=== PATIENT | male | born 1930 | race Caucasian/White ===

== ENCOUNTER 2021-06-22 07:14 | Inpatient (IN) | payer MEDICARE, OTHER ==
[~2021-06-22] VITALS: Ht 170.2 cm; Wt 83.0 kg
--- NOTE | 2021-06-22 07:14 | NUR ---
PT BIBRA 839 FROM HOME C/O SOB, FEVER AND LOW O2 SAT. PT IS AAOX3, NOTED RESPIRATORY DISTRESS, HOOKED TO O2 VIA NON RB AT 15LPM, HOOKED TO FIBERGLASS CONTAINER WINDING OPERATOR, KEPT RESTED AND COMFORTABLE. WILL CONTINUE TO MONITOR.
--- NOTE | 2021-06-22 07:21 | NUR ---
PT SEEN AND EXAMINED BY .
[2021-06-22] MEDS ORDERED: DEXAMETHASONE SOD PHOSPHATE 10 MG/ML VIAL ONE (07:23)
[2021-06-22] MEDS ORDERED: DEXAMETHASONE SOD PHOSPHATE 10 MG/ML VIAL IV ONE (07:30)
--- NOTE | 2021-06-22 07:30 | NUR ---
IV LINE ESTABLISHED BLOOD DRAWN AND SENT TO LAB.
[2021-06-22 07:57] LABS: BASOPHILS # (AUTO) 0.2 K/uL (0.0-0.2); BASOPHILS % (AUTO) 2.3 % (0.0-2.0); HEMATOCRIT 42 % (39-51); HEMOGLOBIN 14.4 g/dL (13.5-17.5); LYMPHOCYTES # (AUTO) 0.7 K/uL (0.8-4.8); LYMPHOCYTES % (AUTO) 8.2 % (20.0-44.0); MEAN CORPUSCULAR HGB CONC 34 g/dl (31.0-36.0); MEAN CORPUSCULAR VOLUME 91 fL (80-96); MONOCYTES # (AUTO) 0.4 K/uL (0.1-1.30); MONOCYTES % (AUTO) 4.8 % (2.0-12.0); NEUTROPHILS # (AUTO) 6.8 K/uL (1.8-8.9); NEUTROPHILS % (AUTO) 84.7 % (43.0-81.0); PLATELET COUNT (AUTO) 220 K/uL (150-450)
[2021-06-22 08:18] LABS: ALANINE AMINOTRANSFERASE 58 U/L (12-78); ALBUMIN 3.2 g/dL (3.4-5.0); ALKALINE PHOSPHATASE 81 U/L (46-116); BILIRUBIN,DIRECT 0.2 mg/dL (0.0-0.2); BILIRUBIN,TOTAL 0.7 mg/dL (0.2-1.0); CALCIUM, SERUM 8.4 mg/dL (8.5-10.1); CARBON DIOXIDE 28 mmol/L (21-32); CHLORIDE 101 mmol/L (98-107); CREATININE 1.1 mg/dL (0.6-1.3); GLUCOSE 101 mg/dL (74-106); POTASSIUM 3.8 mmol/L (3.5-5.1); SODIUM SERUM 139 mmol/L (136-145); UREA NITROGEN, BLOOD 21 mg/dL (7-18)
--- NOTE | 2021-06-22 09:28 | NUR ---
COVID SPECIMEN OBTAINED AND SENT TO LAB.
--- NOTE | 2021-06-22 09:35 | NUR ---
NURSING SUP CALLED FOR TELEMETRY BED.
[2021-06-22] MEDS ORDERED: ERGO500093 PO (10:05)
[2021-06-22] MEDS ORDERED: VALS1TAB6 PO (10:05)
[2021-06-22] MEDS ORDERED: DICL100G34 TP (10:05)
[2021-06-22] MEDS ORDERED: TADA5TAB2 PO (10:05)
[2021-06-22] MEDS ORDERED: POTA20TA83 PO (10:05)
[2021-06-22] MEDS ORDERED: ASPI-1169 PO (10:05)
[2021-06-22] MEDS ORDERED: OXYB-58 PO (10:05)
[2021-06-22] MEDS ORDERED: ASCO-352 PO (10:05)
[2021-06-22] MEDS ORDERED: MECL-159 PO (10:05)
[2021-06-22] MEDS ORDERED: MONT10TA22 PO (10:05)
[2021-06-22] MEDS ORDERED: ICOS1CAP PO (10:05)
[2021-06-22] MEDS ORDERED: DUTA0.5C PO (10:05)
[2021-06-22] MEDS ORDERED: TAMS-12 PO (10:05)
[2021-06-22] MEDS ORDERED: METO25TA3 PO (10:05)
[2021-06-22] MEDS ORDERED: PRAM0.5T11 PO (10:05)
[2021-06-22] MEDS ORDERED: MEMA10TA PO (10:05)
[2021-06-22] MEDS ORDERED: LEVO50TA8 PO (10:05)
[2021-06-22] MEDS ORDERED: EZET10TA16 PO (10:05)
[2021-06-22] MEDS ORDERED: DONE10TA44 PO (10:05)
[2021-06-22] MEDS ORDERED: FURO-144 PO (10:05)
[2021-06-22] MEDS ORDERED: FLUT1BLS6 IH (10:05)
--- NOTE | 2021-06-22 10:10 | NUR ---
RT AT BEDSIDE FOR HIGH FLOW NASAL CAN.
[2021-06-22] MEDS ORDERED: TOCILIZUMAB 400 MG in IV NS 0.9% 80 ML IV ONE (10:30)
[2021-06-22] MEDS ORDERED: ERGOCALCIFEROL (VITAMIN D 2) 50,000 UNIT CAPSULE PO SCH (10:30)
[2021-06-22] MEDS ORDERED: DICLOFENAC TOPICAL 100 GM GEL..GM. TP PRN (10:30)
[2021-06-22 11:02] LABS: BILIRUBIN,URINE NEGATIVE (NEGATIVE); COLOR,URINE YELLOW (YELLOW); LEUKOCYTE ESTERASE ,URINE NEGATIVE (NEGATIVE); NITRITE, URINE NEGATIVE (NEGATIVE); PROTEIN,URINE 30 mg/dl (NEGATIVE); UGLUCOSE NEGATIVE (NEGATIVE); UROBILINOGEN,URINE 0.2 EU/dL (0.2)
[2021-06-22 11:11] LABS: BACTERIA,URINE Few /HPF (None Seen); MUCUS,URINE Few /LPF (None Seen); SQUAMOUS EPITHELIAL CELL,UR Rare /HPF (None Seen)
[2021-06-22] MEDS ORDERED: ONDANSETRON HCL/PF 4 MG/2 ML VIAL IVP PRN (11:11)
[2021-06-22 11:19] LABS: ASPARTATE AMINOTRANSFERASE 100 U/L (15-37)
[2021-06-22] MEDS: CHOLECALCIFEROL 1,000 UNIT TABLET (VIT D3) PO SCH (13:00)
[2021-06-22] MEDS ORDERED: ENOXAPARIN SODIUM 40 MG/0.4 ML DISP.SYRIN SQ ONE (13:01)
[2021-06-22] MEDS ORDERED: CHOLECALCIFEROL 1,000 UNIT TABLET (VIT D3) ONE (13:01)
[2021-06-22] MEDS: ENOXAPARIN SODIUM 40 MG/0.4 ML DISP.SYRIN SQ SCH ×2 (13:02→21:08)
[2021-06-22] MEDS ORDERED: REMDESIVIR (CHARGED) 200 MG, *LOADING DOSE 1 EA in IV NS 0.9% 210 ML IV ONE (14:00)
--- NOTE | 2021-06-22 14:04 | NUR ---
NURSING SUP GAVE 112-1.
--- NOTE | 2021-06-22 14:10 | NUR ---
RN NOT AVAILABLE WILL CALL BACK IN 10 MINS.
--- NOTE | 2021-06-22 14:23 | NUR ---
REPORT GIVEN TO SUZIE GUARDADO FOR MAXIMILIANO.
[2021-06-22 15:00] VITALS: BP 150/90
--- NOTE | 2021-06-22 15:00 | NUR ---
LOOSE HAND PACKER NOTES RECEIVED PT FROM ER VIA ANA, ANTHONY COVID PNEUMONIA WITH SEPSIS BY DR. DUNN, AAO X 3, UZBEK/KYRGYZ SPEAKING, ON HFNC 40L 100% SPO2 AT 98%. NOT IN ANY DISTRESS, SINUS RHYTHM HR 67, DENIES PAIN OR DISCOMFORT AT THIS TIME. IV ACCESS TO LEFT AC G18, FLUSHES WELL SITE CLEAR. INTACT SKIN. REGULAR DIET. UNIT ORIENTATION DONE AND USE OF CALL LIGHT, SAFETY MEASURES IN PLACE, BED LOW LOCKED, CALL LIGHT WITHIN REACH. WILL CONT TO MONITOR.
[2021-06-22 16:00] VITALS: BP 166/90
[2021-06-22] MEDS: ASCORBIC ACID 500 MG TABLET PO SCH (17:14)
--- NOTE | 2021-06-22 18:29 | NUR ---
RN NOTES ALL NEEDS MET AT THIS TIME. PATIENT RESTING COMFORTABLY. HOB UP 30 DEG. SAFETY MEASURES IN PLACE. CALL LIGHT WITHIN REACH. WILL ENDORSE TO NEXT SHIFT FOR MAXIMILIANO. LOADING REYEZ OF REMDESIVIR GIVEN AT ER EARLIER. NOT IN ANY DISTRESS.
--- NOTE | 2021-06-22 19:20 | NUR ---
RN NOTES RECEIVED PATIENT AWAKE ON BED. WITH HIFLOW O2 40LPM AND FIO2 100% NO ACUTE RESPIRATORY DISTRESS SATURATION 95%. AFEBRILE. PATIENT IS AWARE HOW TO USED CALL LIGHT. ISOLATION PRECAUTION RENDERED DUE TO + COVID. DENIES PAIN. KEPT PATIENT CLEAN AND COMFORTABLE IN BED. ALL NEEDS ATTENDED. WILL CONTINUE TO MONITOR.
[2021-06-22 20:00] VITALS: BP 157/90
[2021-06-22] MEDS: OXYBUTYNIN CHLORIDE ER 5 MG TAB PO SCH (21:08)
[2021-06-23] VITALS: BP 159/78
--- NOTE | 2021-06-23 | NUR ---
RN NOTES ENDORSED CONTINUITY OF CARE TO MAX, PATIENT IS IN STABLE CONDITION AT THIS TIME. CONTINUE ON HIFLOW 02 40 LPM AND FIO2 100%. SATURATION KEPT >92%. AFEBRILE. ALL NEEDS ATTENDED.CALL LIGHT KEPT WITHIN EASY REACH.
--- NOTE | 2021-06-23 00:05 | NUR ---
RN NOTE REPORT RECEIVED FROM CARSON LARSEN, PATIENT AWAKE IN BED, AO X 3, NO S/SX OF ACUTE DISTRESS AT THIS TIME. BREATHING EVEN AND UNLABORED, SATURATION AT 94% ON 40 LPM 100% FIO2 VIA HIGH FLOW NC, SR ON THE MONITOR, HR IS 97. NOTED IV SITE AT L AC 18G, PATENT AND FLUSHING WELL, NO S/S OF INFECTION OR INFILTRATION. SAFETY MEASURES IMPLEMENTED. PATIENT BED ALARM IS ON. HEAD OF BED ELEVATED. BED IS LOCKED, IN LOWEST POSITION AND SIDE RAILS UP. CALL LIGHT WITHIN REACH OF THE PATIENT. WILL CONTINUE TO MONITOR AND REASSESS FOR ANY CHANGES..
[2021-06-23 04:00] VITALS: BP 150/84
--- NOTE | 2021-06-23 05:45 | NUR ---
RN NOTE SPUTUM SPECIMEN COLLECTED, SCOTT OF LAB WAS NOTIFIED, SHE ACKNOWLEDGED.
[2021-06-23 06:45] LABS: BASOPHILS % (AUTO) 0.1 % (0.0-2.0); HEMATOCRIT 39 % (39-51); HEMOGLOBIN 13.4 g/dL (13.5-17.5); LYMPHOCYTES # (AUTO) 0.5 K/uL (0.8-4.8); LYMPHOCYTES % (AUTO) 6.9 % (20.0-44.0); MEAN CORPUSCULAR HGB CONC 34 g/dl (31.0-36.0); MEAN CORPUSCULAR VOLUME 92 fL (80-96); MONOCYTES # (AUTO) 0.7 K/uL (0.1-1.30); MONOCYTES % (AUTO) 8.8 % (2.0-12.0); NEUTROPHILS # (AUTO) 6.7 K/uL (1.8-8.9); NEUTROPHILS % (AUTO) 84.2 % (43.0-81.0); PLATELET COUNT (AUTO) 239 K/uL (150-450); RED BLOOD CELL COUNT(AUTO) 4.26 MIL/uL (4.5-6.0); WHITE BLOOD COUNT (AUTO) 7.9 K/uL (4.3-11.0)
--- NOTE | 2021-06-23 06:51 | NUR ---
RN NOTE PER SCOTT OF LAB, SHE IS UNABLE TO DRAW SPECIMEN FOR QUANTIFERON GOLD TB TEST KIT IS UNAVAILABLE. WILL ADVISE ONCE KIT IS AVAILABLE.
[2021-06-23 07:03] LABS: ALBUMIN 2.8 g/dL (3.4-5.0); BILIRUBIN,TOTAL 0.6 mg/dL (0.2-1.0); CALCIUM, SERUM 8.3 mg/dL (8.5-10.1); CREATININE 0.9 mg/dL (0.6-1.3); POTASSIUM 3.6 mmol/L (3.5-5.1); TOTAL PROTEIN, SERUM 7.1 g/dL (6.4-8.2)
[2021-06-23 07:21] LABS: FERRITIN 848 ng/mL (8-388)
--- NOTE | 2021-06-23 07:51 | NUR ---
SENIOR PRINCIPAL ARCHITECT NOTES RECEIVED THE PATIENT AWAKE AND ALERT IN BED ON HIGH FLOW 40 LPM FIO2 100%, O2 SAT 94%, SR 63BPM. PT ABLE TO USE URINAL, SKIN IS DRY CLEAN AND IN TACT. PT HAS A LEFT AC 18G FLUSHING WELL WITH DRESSING DRY AND IN TACT. BED IS IN LOWEST LOCKED POSITION, CALL LIGHT WITHIN REACH, ALL NEEDS ATTENDED TO. WILL CONTINUE TO MONITOR.
[2021-06-23 08:00] VITALS: BP 137/81
[2021-06-23] MEDS: LEVOTHYROXINE SODIUM 50 MCG TABLET PO SCH (08:01)
[2021-06-23] MEDS: ASPIRIN 81 MG TAB.CHEW PO SCH (08:18)
[2021-06-23] MEDS: CHOLECALCIFEROL 1,000 UNIT TABLET (VIT D3) PO SCH (08:18)
[2021-06-23] MEDS: HYDROCHLOROTHIAZIDE 25 MG TABLET PO SCH (08:19)
[2021-06-23] MEDS: FUROSEMIDE 40 MG TABLET PO SCH (08:19)
[2021-06-23] MEDS: TAMSULOSIN 0.4 MG CAP.SR.24H PO SCH (08:19)
[2021-06-23] MEDS: METOPROLOL SUCCINATE 25 MG TAB.SR.24H PO SCH (08:20)
[2021-06-23] MEDS: ZINC SULFATE 220 MG CAPSULE PO SCH (08:20)
[2021-06-23] MEDS: MECLIZINE HCL 25 MG TABLET PO SCH (08:20)
[2021-06-23] MEDS: DONEPEZIL 5 MG TABLET PO SCH (08:20)
[2021-06-23] MEDS: ASCORBIC ACID 500 MG TABLET PO SCH ×2 (08:20→16:16)
[2021-06-23] MEDS: DUTASTERIDE (0.5 MG) 0.5 MG CAPSULE PO SCH (08:21)
[2021-06-23] MEDS: VALSARTAN 80 MG TABLET PO SCH (08:21)
[2021-06-23] MEDS: DEXAMETHASONE SOD PHOSPHATE 10 MG/ML VIAL IV SCH (08:21)
[2021-06-23] MEDS: ENOXAPARIN SODIUM 40 MG/0.4 ML DISP.SYRIN SQ SCH ×2 (08:22→16:16)
[2021-06-23] MEDS ORDERED: Medication Not On Formulary EA (Tadalafil (Cialis) 5 MG) PO SCH (09:00)
[2021-06-23] MEDS ORDERED: DEXAMETHASONE SOD PHOSPHATE 4 MG/ML VIAL IV SCH (09:00)
[2021-06-23] MEDS ORDERED: ENOXAPARIN SODIUM 40 MG/0.4 ML DISP.SYRIN SQ SCH (09:00)
[2021-06-23] MEDS: EZETIMIBE 10 MG TABLET PO SCH (09:38)
--- NOTE | 2021-06-23 10:39 | NUR ---
SCREENER OPERATOR NOTE SEEN BY DR VILLALOBOS UPDATED PATIENT CONDITION , IF PATIENT SATURATION BELOW 87% OK TO PLACE NONREBREATHER MASK ,WILL F\U
[2021-06-23 12:00] VITALS: BP 136/70
--- NOTE | 2021-06-23 13:00 | NUR ---
EMERY WHEEL WORKER NOTE ENCOURAGED TO USE INTENSIVE SPIROMETER AND PLACE ON PRONE POSITION ,WILL CONT TO MONITOR
[2021-06-23] MEDS: REMDESIVIR (CHARGED) 100 MG in IV NS 0.9% 100 ML IV SCH (13:41)
--- NOTE | 2021-06-23 15:33 | NUR ---
RADIAL ROUTER OPERATOR NOTE PLACED ON SIDE O2 SATURATION 93%, WILL MONITOR
[2021-06-23 16:00] VITALS: BP 132/72
--- NOTE | 2021-06-23 18:36 | NUR ---
CABINET AND TRIM INSTALLER NOTES PT IN BED IN SEMI-SPAIN POSITION, COUGHING AND HAVING SOME DIFFICULTY BREATHING. OXYGEN SATURATION FLUCTUATING FROM 88-91%. INSTRUCTED PT ON USE OF INCENTIVE SPIROMETER, PT USING EFFECTIVELY. ABLE TO EAT FOOD, ABOUT 50% CONSUMED. WILL CONTINUE TO MONITOR.
--- NOTE | 2021-06-23 19:20 | NUR ---
RN NOTE REPORT RECEIVED FROM ELSA LARSEN, PATIENT IN BED ON SEMI SPAIN'S, AO X 3, GAMBIAN SPEAKING, BUT UNDERSTAND SIMPLE TAJIK. NO S/SX OF ACUTE DISTRESS AT THIS TIME. BREATHING EVEN AND UNLABORED, SATURATION AT 91% ON 40 LPM 100% FIO2 VIA HIGH FLOW NC, SR ON THE MONITOR, HR IS 68. NOTED IV SITE AT L AC 18G, PATENT AND FLUSHING WELL, NO S/S OF INFECTION OR INFILTRATION. ENCOURAGED USE OF INCENTIVE SPIROMETER AND EDUCATED REGARDING IMPORTANCE OF PRONING AND SIDE LYING, VERBALIZED UNDERSTANDING. SAFETY MEASURES IMPLEMENTED. PATIENT BED ALARM IS ON. HEAD OF BED ELEVATED. BED IS LOCKED, IN LOWEST POSITION AND SIDE RAILS UP. CALL LIGHT WITHIN REACH OF THE PATIENT. WILL CONTINUE TO MONITOR AND REASSESS FOR ANY CHANGES..
[2021-06-23 20:00] VITALS: BP 109/71
--- NOTE | 2021-06-23 20:52 | NUR ---
RN NOTE TELEPHONE CALL FROM JULIO OF LAB, PCR RESULTED POSITIVE. DR MA WAS NOTIFIED. AWAITING CALL BACK.
--- NOTE | 2021-06-23 21:00 | NUR ---
RN NOTE SPOKE WITH DR MA, RELAYED POSITIVE PCR RESULT, HE ACKNOWLEDGED. ALSO ADVISED PT HAS BEEN COUGHING A LOT AND REQUESTING FOR COUGH MEDICATION. ORDER RECEIVED FOR REGULAR ROBITUSSIN (WITHOUT CODEINE) 5 ML PO Q4H PRN FOR COUGH. ARTIFICIAL MARBLE WORKERSUZIE BROWN.
[2021-06-23] MEDS: OXYBUTYNIN CHLORIDE ER 5 MG TAB PO SCH (21:06)
[2021-06-23] MEDS: GUAIFENESIN/D-METHORPHAN HB 5 ML UDC PO PRN (22:05)
[2021-06-23] MEDS ORDERED: AZITHROMYCIN 500 MG in IV D5W 250 ML IV SCH (22:30)
[2021-06-24] VITALS: BP 144/77
[2021-06-24] MEDS ORDERED: AZITHROMYCIN 500 MG VIAL ONE (00:22)
[2021-06-24 04:00] VITALS: BP 133/70
[2021-06-24 06:46] LABS: BASOPHILS % (AUTO) 0.2 % (0.0-2.0); HEMATOCRIT 40 % (39-51); HEMOGLOBIN 13.7 g/dL (13.5-17.5); LYMPHOCYTES # (AUTO) 0.7 K/uL (0.8-4.8); LYMPHOCYTES % (AUTO) 6.7 % (20.0-44.0); MEAN CORPUSCULAR HGB CONC 34 g/dl (31.0-36.0); MEAN CORPUSCULAR VOLUME 92 fL (80-96); MONOCYTES # (AUTO) 0.7 K/uL (0.1-1.30); MONOCYTES % (AUTO) 6.3 % (2.0-12.0); NEUTROPHILS % (AUTO) 86.8 % (43.0-81.0); PLATELET COUNT (AUTO) 289 K/uL (150-450); RED BLOOD CELL COUNT(AUTO) 4.36 MIL/uL (4.5-6.0); WHITE BLOOD COUNT (AUTO) 10.4 K/uL (4.3-11.0)
[2021-06-24] MEDS: GUAIFENESIN/D-METHORPHAN HB 5 ML UDC PO PRN (06:53)
[2021-06-24 07:03] LABS: CALCIUM, SERUM 8.4 mg/dL (8.5-10.1); CREATININE 0.9 mg/dL (0.6-1.3); MAGNESIUM 2.2 mg/dL (1.8-2.4); PHOSPHORUS 3.3 mg/dL (2.5-4.9); POTASSIUM 3.3 mmol/L (3.5-5.1)
--- NOTE | 2021-06-24 07:37 | NUR ---
RN OPENING NOTE Pt is Asleep, respoinsive to verbal and tactile stimuli, on High flow mask 40Lpm, HOB maintained elevated, safety precautions implemented, bed locked in lowest position, call light within reach.
[2021-06-24 08:00] VITALS: BP 146/77
[2021-06-24] MEDS: HYDROCHLOROTHIAZIDE 25 MG TABLET PO SCH (09:54)
[2021-06-24] MEDS: EZETIMIBE 10 MG TABLET PO SCH (09:55)
[2021-06-24] MEDS: CHOLECALCIFEROL 1,000 UNIT TABLET (VIT D3) PO SCH (09:55)
[2021-06-24] MEDS: ASPIRIN 81 MG TAB.CHEW PO SCH (09:55)
[2021-06-24] MEDS: DUTASTERIDE (0.5 MG) 0.5 MG CAPSULE PO SCH (09:55)
[2021-06-24] MEDS: ASCORBIC ACID 500 MG TABLET PO SCH ×2 (09:55→16:49)
[2021-06-24] MEDS: VALSARTAN 80 MG TABLET PO SCH (09:55)
[2021-06-24] MEDS: METOPROLOL SUCCINATE 25 MG TAB.SR.24H PO SCH (09:55)
[2021-06-24] MEDS: LEVOTHYROXINE SODIUM 50 MCG TABLET PO SCH (09:55)
[2021-06-24] MEDS: TAMSULOSIN 0.4 MG CAP.SR.24H PO SCH (09:55)
[2021-06-24] MEDS: DEXAMETHASONE SOD PHOSPHATE 10 MG/ML VIAL IV SCH (09:56)
[2021-06-24] MEDS: MECLIZINE HCL 25 MG TABLET PO SCH (09:56)
[2021-06-24] MEDS: DONEPEZIL 5 MG TABLET PO SCH (09:56)
[2021-06-24] MEDS: ZINC SULFATE 220 MG CAPSULE PO SCH (09:56)
[2021-06-24] MEDS: ENOXAPARIN SODIUM 40 MG/0.4 ML DISP.SYRIN SQ SCH ×2 (09:58→16:49)
[2021-06-24] MEDS: FUROSEMIDE 40 MG TABLET PO SCH (10:24)
[2021-06-24] MEDS ORDERED: POLYETHYLENE GLYCOL 3350 17 GM POWD.PACK PO PRN (10:30)
[2021-06-24 10:41] LABS: ALBUMIN 2.8 g/dL (3.4-5.0); BILIRUBIN,DIRECT 0.5 mg/dL (0.0-0.2); BILIRUBIN,TOTAL 0.9 mg/dL (0.2-1.0); TOTAL PROTEIN, SERUM 7.1 g/dL (6.4-8.2)
[2021-06-24] MEDS ORDERED: POTASSIUM CHLORIDE 20 MEQ TAB.PRT.SR PO SCH (11:00)
[2021-06-24 12:00] VITALS: BP 141/77
[2021-06-24] MEDS: REMDESIVIR (CHARGED) 100 MG in IV NS 0.9% 100 ML IV SCH (14:13)
[2021-06-24 16:00] VITALS: BP 130/76
[2021-06-24] MEDS: DOCUSATE SODIUM 100 MG CAPSULE PO SCH (16:49)
--- NOTE | 2021-06-24 18:56 | NUR ---
Rn Closing note Patient awake and alert, able to verbalize needs. VS WNL, patient still on High Flow with O2 sat 91-95%. Patient still has productive, strong cough. In no respiratory distress, patient tolerating current high flow settings at Fi02 of 100%. Patient's Left AC IV patent and intact, flushing well. Second dose Remdesivir given as ordered. Patient still on IV atb for PNA / Sepsis. All needs met, turned and repositioned Q2H. Call light within easy reach. Will endorse care to incoming RN for continuity of care.
--- NOTE | 2021-06-24 19:30 | NUR ---
RN NOTE PT RECEIVED IN BED. PT IS ON HF OXYGEN 40 LPM, FIO2 100%. PT OXYGEN SATURATION IS 88-92%. PT IS NOT SHOWING ANY S/S OF RESP DISTRESS. CURRENTLY A&OX3-4, CROATIAN SPEAKING. PT IS ON TELE MONITOR SHOWING NSR. PT HAS IV LINE ON LEFT AC GAUGE 18, FLUSHED, PATENT, AND INTACT WITH NO INFILTRATION. ALL SAFETY MEASURES IMPLEMENTED. CALL LIGHT WITHIN REACH. BED ALARM ON. BED LOCKED AND IN LOWEST POSITION. WILL CONTINUE TO MONITOR THROUGHOUT THE SHIFT.
[2021-06-24 20:00] VITALS: BP 122/67
[2021-06-24] MEDS: OXYBUTYNIN CHLORIDE ER 5 MG TAB PO SCH (22:24)
[2021-06-24] MEDS ORDERED: ACETAMINOPHEN 325 MG TABLET PO PRN (23:00)
[2021-06-25] VITALS: BP 123/72
[2021-06-25 04:00] VITALS: BP 128/85
--- NOTE | 2021-06-25 06:43 | NUR ---
RN NOTE NO CHANGES IN PT CONDITION DURING SHIFT. PT IS CURRENTLY ON HF O2 40 LPM, 100% FIO2. PT OXYGEN SATURATION IS >90%. NO SIGNS OF RESP DISTRESS. A&OX3, MARSHALLESE SPEAKING. LEFT AC GAUGE 18 NOTED. IV LINE FLUSHED, PATENT, AND INTACT WITH NO INFILTRATION. ALL DUE MEDS GIVEN ORDERED. PT KEPT CLEAN AND COMFORTABLE. ALL SAFETY MEASURES IMPLEMENTED. CALL LIGHT WITHIN REACH. BED LOCKED AND IN LOWEST POSITION. BED ALARM ON. WILL ENDORSE TO MORNING SHIFT RN FOR MAXIMILIANO.
[2021-06-25 07:10] LABS: BASOPHILS % (AUTO) 0.3 % (0.0-2.0); EOSINOPHILS % (AUTO) 0.1 % (0.0-6.0); HEMATOCRIT 41 % (39-51); HEMOGLOBIN 13.7 g/dL (13.5-17.5); LYMPHOCYTES # (AUTO) 0.7 K/uL (0.8-4.8); LYMPHOCYTES % (AUTO) 5.8 % (20.0-44.0); MEAN CORPUSCULAR HGB CONC 34 g/dl (31.0-36.0); MEAN CORPUSCULAR VOLUME 92 fL (80-96); MONOCYTES # (AUTO) 0.6 K/uL (0.1-1.30); NEUTROPHILS # (AUTO) 10.5 K/uL (1.8-8.9); NEUTROPHILS % (AUTO) 88.8 % (43.0-81.0); PLATELET COUNT (AUTO) 343 K/uL (150-450); RED BLOOD CELL COUNT(AUTO) 4.42 MIL/uL (4.5-6.0); WHITE BLOOD COUNT (AUTO) 11.8 K/uL (4.3-11.0)
--- NOTE | 2021-06-25 07:10 | NUR ---
RN NOTE PT IV LINE CAME OUT. RE-INSERTED IV LINE ON LEFT HAND GAUGE 22. IV LINE FLUSHED, PATENT, AND INTACT.
[2021-06-25 07:12] LABS: CALCIUM, SERUM 8.6 mg/dL (8.5-10.1); MAGNESIUM 2.3 mg/dL (1.8-2.4); POTASSIUM 3.6 mmol/L (3.5-5.1)
--- NOTE | 2021-06-25 07:40 | NUR ---
RN OPENING NOTES Pt is awake, alert to verbal and tactile stimuli, on high flow mask 40LPM, with fluctuating o2 sat >90%. Tele reading sinus rhytm with PVCs. safety precautions implemented, bed locked in lowest position, call light within reach.
[2021-06-25 08:00] VITALS: BP 122/67
[2021-06-25] MEDS: CHOLECALCIFEROL 1,000 UNIT TABLET (VIT D3) PO SCH (09:03)
[2021-06-25] MEDS: EZETIMIBE 10 MG TABLET PO SCH (09:04)
[2021-06-25] MEDS: TAMSULOSIN 0.4 MG CAP.SR.24H PO SCH (09:05)
[2021-06-25] MEDS: ASCORBIC ACID 500 MG TABLET PO SCH ×2 (09:05→16:58)
[2021-06-25] MEDS: DOCUSATE SODIUM 100 MG CAPSULE PO SCH ×2 (09:06→16:58)
[2021-06-25] MEDS: DUTASTERIDE (0.5 MG) 0.5 MG CAPSULE PO SCH (09:06)
[2021-06-25] MEDS: HYDROCHLOROTHIAZIDE 25 MG TABLET PO SCH (09:07)
[2021-06-25] MEDS: ZINC SULFATE 220 MG CAPSULE PO SCH (09:07)
[2021-06-25] MEDS: METOPROLOL SUCCINATE 25 MG TAB.SR.24H PO SCH (09:08)
[2021-06-25] MEDS: DONEPEZIL 5 MG TABLET PO SCH (09:08)
[2021-06-25] MEDS: FUROSEMIDE 40 MG TABLET PO SCH (09:08)
[2021-06-25] MEDS: ASPIRIN 81 MG TAB.CHEW PO SCH (09:10)
[2021-06-25] MEDS: ENOXAPARIN SODIUM 40 MG/0.4 ML DISP.SYRIN SQ SCH ×2 (09:10→17:00)
[2021-06-25] MEDS: MECLIZINE HCL 25 MG TABLET PO SCH (09:10)
[2021-06-25] MEDS: VALSARTAN 80 MG TABLET PO SCH (09:11)
[2021-06-25] MEDS: DEXAMETHASONE SOD PHOSPHATE 10 MG/ML VIAL IV SCH (09:12)
[2021-06-25] MEDS: LEVOTHYROXINE SODIUM 50 MCG TABLET PO SCH (09:13)
[2021-06-25 12:00] VITALS: BP 113/73
[2021-06-25 12:11] LABS: ALBUMIN 2.8 g/dL (3.4-5.0); BILIRUBIN,DIRECT 0.4 mg/dL (0.0-0.2); BILIRUBIN,TOTAL 0.9 mg/dL (0.2-1.0); TOTAL PROTEIN, SERUM 7.3 g/dL (6.4-8.2)
[2021-06-25] MEDS ORDERED: diphenhydrAMINE HCL 50 MG/ML VIAL IV ONE (14:00)
[2021-06-25] MEDS ORDERED: ACETAMINOPHEN 325 MG TABLET PO ONE (14:00)
[2021-06-25] MEDS ORDERED: TOCILIZUMAB 600 MG in IV NS 0.9% 70 ML IV ONE (15:00)
[2021-06-25 16:00] VITALS: BP 104/67
--- NOTE | 2021-06-25 18:55 | NUR ---
RN CLOSING NOTES Pt is A/O X 3 kyrgyz speaking, High flow oxygen 40LPM, FI02 100%. Telereading AV Pacing HR 70s. Able to stand at bedside, Left hand IV clean with no s/sx of infiltrate. Actemra administered per pulmo and Px, pre-medicated accordingly with benadryl and tylenol as directed, no adverse reaction noted during or post infusion. Safety precautions implemented, bed locked in lowest position, call light within reach.
--- NOTE | 2021-06-25 19:40 | NUR ---
RN NOTE PT RECEIVED IN BED. PT IS CURRENTLY ON HF O2 AT 40 LPM 100% FIO2. PT IS NOT SHOWING ANY S/S OF RESP DISTRESS. PT IS A&OX3-4, ROMANIAN SPEAKING. PT IS ON TELE MONITOR AV PACING IN 70s. SKIN INTACT. IV LINE ON LEFT HAND NOTED. IV LINE FLUSHED, PATENT, AND INTACT WITH NO INFILTRATION. ALL SAFETY MEASURES IMPLEMENTED. CALL LIGHT WITHIN REACH. BED ALARM ON. BED LOCKED AND IN LOWEST POSITION. WILL CONTINUE TO MONITOR THROUGHOUT THE SHIFT.
[2021-06-25 20:00] VITALS: BP 117/71
[2021-06-25] MEDS: OXYBUTYNIN CHLORIDE ER 5 MG TAB PO SCH (22:02)
[2021-06-26] VITALS: BP 117/59
[2021-06-26 04:00] VITALS: BP 124/68
--- NOTE | 2021-06-26 06:35 | NUR ---
RN NOTE NO CHANGES IN PT CONDITION DURING SHIFT. PT IS ON HF O2 AT 40 LPM WITH FIO2 AT 100%. PT IS A/OX3-4, BULGARIAN SPEAKING. CURRENTLY ON TELE MONITOR AV PACING IN 70s. PT HAS IV LINE ON LEFT HAND GAUGE 20. FLUSHED, PATENT AND INTACT WITH NO INFILTRATION. ALL MEDS GIVEN ORDERED. PT KEPT CLEAN AND COMFORTABLE. ALL SAFETY MEASURES IMPLEMENTED. CALL LIGHT WITHIN REACH. BED ALARM ON. BED LOCKED AND IN LOWEST POSITION. WILL ENDORSE TO MORNING SHIFT RN FOR MAXIMILIANO.
--- NOTE | 2021-06-26 07:13 | NUR ---
MS RN OPENING NOTE RECEIVED ON BED ALERT AND ORIENTED X 3, PASHTO SPEAKING. ABLE TO VERBALIZE NEEDS. PATIENT WITH OXYGEN AT HIGH FLOW AT 40LPM WITH FIO2 AT 100%. PATIENT WITH OXYGEN SATURATION OF 88-94%. NOTED IV SITE ON LEFT HAND #20; PATENT, INTACT AND FLUSHING WELL; NO S/S OF INFECTION OR INFILTRATION. ON SOAPSTONER WITH AV PACING AT 70 BPM. SAFETY MEASURES HAVE BEEN PROVIDED AND IMPLEMENTED. PATIENT BED ALARM IS ON. HEAD OF BED ELEVATED. BED IS LOCKED AND IN LOWEST POSITION AND SIDE RAILS UP. CALL LIGHT WITHIN REACH OF THE PATIENT. APPLICABLE ISOLATION PRECAUTIONS IN PLACE. WILL CONTINUE TO MONITOR PATIENT.
[2021-06-26 07:21] LABS: BASOPHILS % (AUTO) 0.1 % (0.0-2.0); EOSINOPHILS % (AUTO) 0.2 % (0.0-6.0); HEMATOCRIT 41 % (39-51); HEMOGLOBIN 14.1 g/dL (13.5-17.5); LYMPHOCYTES # (AUTO) 0.6 K/uL (0.8-4.8); LYMPHOCYTES % (AUTO) 6.3 % (20.0-44.0); MEAN CORPUSCULAR HGB CONC 34 g/dl (31.0-36.0); MEAN CORPUSCULAR VOLUME 92 fL (80-96); MONOCYTES # (AUTO) 0.4 K/uL (0.1-1.30); MONOCYTES % (AUTO) 3.8 % (2.0-12.0); NEUTROPHILS # (AUTO) 8.6 K/uL (1.8-8.9); NEUTROPHILS % (AUTO) 89.6 % (43.0-81.0); PLATELET COUNT (AUTO) 413 K/uL (150-450); RED BLOOD CELL COUNT(AUTO) 4.48 MIL/uL (4.5-6.0); WHITE BLOOD COUNT (AUTO) 9.6 K/uL (4.3-11.0)
[2021-06-26 07:38] LABS: ALBUMIN 2.7 g/dL (3.4-5.0); BILIRUBIN,DIRECT 0.3 mg/dL (0.0-0.2); BILIRUBIN,TOTAL 0.7 mg/dL (0.2-1.0); CALCIUM, SERUM 8.8 mg/dL (8.5-10.1); CREATININE 1.2 mg/dL (0.6-1.3); POTASSIUM 3.4 mmol/L (3.5-5.1); TOTAL PROTEIN, SERUM 7.3 g/dL (6.4-8.2)
[2021-06-26 08:00] VITALS: BP 101/76
[2021-06-26] MEDS: LEVOTHYROXINE SODIUM 50 MCG TABLET PO SCH (08:34)
[2021-06-26] MEDS: VALSARTAN 80 MG TABLET PO SCH (09:00)
[2021-06-26] MEDS: ENOXAPARIN SODIUM 40 MG/0.4 ML DISP.SYRIN SQ SCH ×2 (09:28→17:20)
[2021-06-26] MEDS: DUTASTERIDE (0.5 MG) 0.5 MG CAPSULE PO SCH (09:30)
--- NOTE | 2021-06-26 09:30 | NUR ---
PIPE INSPECTOR NOTE PATIENT SEEN BY DR. GAYTAN WITH NO NEW ORDER AT THIS TIME. WILL CONTINUE TO MONITOR PATIENT.
[2021-06-26] MEDS: DONEPEZIL 5 MG TABLET PO SCH (09:31)
[2021-06-26] MEDS: MECLIZINE HCL 25 MG TABLET PO SCH (09:31)
[2021-06-26] MEDS: DOCUSATE SODIUM 100 MG CAPSULE PO SCH ×2 (09:32→17:00)
[2021-06-26] MEDS: FUROSEMIDE 40 MG TABLET PO SCH (09:32)
[2021-06-26] MEDS: ZINC SULFATE 220 MG CAPSULE PO SCH (09:32)
[2021-06-26] MEDS: CHOLECALCIFEROL 1,000 UNIT TABLET (VIT D3) PO SCH (09:32)
[2021-06-26] MEDS: ASPIRIN 81 MG TAB.CHEW PO SCH (09:33)
[2021-06-26] MEDS: EZETIMIBE 10 MG TABLET PO SCH (09:33)
[2021-06-26] MEDS: TAMSULOSIN 0.4 MG CAP.SR.24H PO SCH (09:33)
[2021-06-26] MEDS: METOPROLOL SUCCINATE 25 MG TAB.SR.24H PO SCH (09:34)
[2021-06-26] MEDS: HYDROCHLOROTHIAZIDE 25 MG TABLET PO SCH (09:34)
[2021-06-26] MEDS: DEXAMETHASONE SOD PHOSPHATE 10 MG/ML VIAL IV SCH (09:35)
[2021-06-26] MEDS: ASCORBIC ACID 500 MG TABLET PO SCH ×2 (09:35→17:21)
[2021-06-26 09:45] LABS: ABG BASE EXCESS 3.4 mmol/L; ABG OXYGEN SATURATION 93.8 % (92.0-98.5); ABG PCO2 34.2 mmHg (35.0-45.0); ABG PH 7.502 (7.350-7.450); ABG PO2 67.9 mmHg (75.0-100.0); AaDO2 610.9 mmHg; COHb 0.2 % (0.5-1.5); O2Hb 93.6 % (94.0-97.0); SITE, ABG Right Radial; VENT MODE, BG 40L 100%
[2021-06-26] MEDS ORDERED: POTASSIUM CHLORIDE 20 MEQ TAB.PRT.SR PO SCH (10:00)
[2021-06-26 12:00] VITALS: BP 102/45
[2021-06-26 16:00] VITALS: BP 114/67
--- NOTE | 2021-06-26 17:30 | NUR ---
PIPE WASHER NOTE COLACE NOT GIVEN, PATIENT HAD 2 SOFT BOWEL MOVEMENT DURING THE SHIFT.
--- NOTE | 2021-06-26 19:00 | NUR ---
POUNCER MACHINE CLOSING NOTE PATIENT ON BED ALERT AND ORIENTED X 3-4, UGANDAN SPEAKING. ABLE TO VERBALIZE NEEDS. PATIENT WITH OXYGEN AT HIGH FLOW AT 40LPM WITH FIO2 AT 100%. PATIENT WITH OXYGEN SATURATION OF 88-94%. NOTED IV SITE ON LEFT HAND #20; PATENT, INTACT AND FLUSHING WELL; NO S/S OF INFECTION OR INFILTRATION. ON ELECTRONEURODIAGNOSTIC TECHNICIAN WITH AV PACING AT 70 BPM. SAFETY MEASURES HAVE BEEN PROVIDED AND IMPLEMENTED. PATIENT BED ALARM IS ON. HEAD OF BED ELEVATED. BED IS LOCKED AND IN LOWEST POSITION AND SIDE RAILS UP. CALL LIGHT WITHIN REACH OF THE PATIENT. APPLICABLE ISOLATION PRECAUTIONS IN PLACE. WILL ENDORSE TO NEXT SHIFT FOR CONTINUITY OF CARE.
[2021-06-26 20:00] VITALS: BP 112/72
[2021-06-26] MEDS: OXYBUTYNIN CHLORIDE ER 5 MG TAB PO SCH (22:12)
[2021-06-27] VITALS: BP 133/82
[2021-06-27 04:00] VITALS: BP 127/72
--- NOTE | 2021-06-27 04:06 | NUR ---
RT pt saturation 88% on 40L 100%. increased to 50L 100%, no change. increased to 60L 100%, no change. placed pt on additional o2 of nrb. spo2 increased to 90%. will continue to monitor. notified jonathan mcdermott. will continue to monitor.
--- NOTE | 2021-06-27 04:13 | NUR ---
TELE-1/QUALITY REVIEWER PT SATURATION 94% SPO2 @ THIS TIME. WILL CONTINUE TO MONITOR.
--- NOTE | 2021-06-27 05:39 | NUR ---
TELE-1/COMPANION CAREGIVER PT REFUSING TO WEAR NON-REBREATHER MASK. EXPLAINED THE IMPORTANCE OF OXYGEN THERAPY. SPO2 90% @ THIS TIME. WILL CONTINUE TO MONITOR.
[2021-06-27 06:59] LABS: ALBUMIN 2.6 g/dL (3.4-5.0); BILIRUBIN,DIRECT 0.4 mg/dL (0.0-0.2); BILIRUBIN,TOTAL 0.8 mg/dL (0.2-1.0); TOTAL PROTEIN, SERUM 7.1 g/dL (6.4-8.2)
--- NOTE | 2021-06-27 07:15 | NUR ---
RN OPENING NOTES RECEIVED PT IN BED. A/O X 2-3. FIJIAN SPEAKING. ABLE TO VERBALIZE NEEDS. OXYGEN AT HIGH FLOW AT 60LPM WITH FIO2 OF 100%. IV SITE ON LEFT HAND #20 INTACT, PATENT AND FLUSHED. ON REFORMATORY ATTENDANT READING V PACING. NO PAIN REPORTED. SAFETY MEASURES IMPLEMENTED. CALL LIGHT WITHIN REACH. BED ALARM ON. HOB ELEVATED. BED LOCKED AND IN LOWEST POSITION WITH SIDE RAILS UP X3. APPLICABLE ISOLATION PRECAUTIONS IN PLACE. WILL CONTINUE TO MONITOR.
[2021-06-27 07:31] LABS: CREATININE 1.1 mg/dL (0.6-1.3); POTASSIUM 3.8 mmol/L (3.5-5.1)
[2021-06-27 08:00] VITALS: BP 101/64
[2021-06-27] MEDS: LEVOTHYROXINE SODIUM 50 MCG TABLET PO SCH (08:39)
[2021-06-27] MEDS: EZETIMIBE 10 MG TABLET PO SCH (08:40)
[2021-06-27] MEDS: DEXAMETHASONE SOD PHOSPHATE 10 MG/ML VIAL IV SCH (08:40)
[2021-06-27] MEDS: DUTASTERIDE (0.5 MG) 0.5 MG CAPSULE PO SCH (08:40)
[2021-06-27] MEDS: ASPIRIN 81 MG TAB.CHEW PO SCH (08:40)
[2021-06-27] MEDS: DONEPEZIL 5 MG TABLET PO SCH (08:41)
[2021-06-27] MEDS: TAMSULOSIN 0.4 MG CAP.SR.24H PO SCH (08:41)
[2021-06-27] MEDS: FUROSEMIDE 40 MG TABLET PO SCH (08:41)
[2021-06-27] MEDS: ZINC SULFATE 220 MG CAPSULE PO SCH (08:41)
[2021-06-27] MEDS: MECLIZINE HCL 25 MG TABLET PO SCH (08:42)
[2021-06-27] MEDS: ASCORBIC ACID 500 MG TABLET PO SCH ×2 (08:42→16:36)
[2021-06-27] MEDS: CHOLECALCIFEROL 1,000 UNIT TABLET (VIT D3) PO SCH (08:42)
[2021-06-27] MEDS: DOCUSATE SODIUM 100 MG CAPSULE PO SCH ×2 (08:42→16:36)
[2021-06-27] MEDS: ENOXAPARIN SODIUM 40 MG/0.4 ML DISP.SYRIN SQ SCH ×2 (08:43→16:37)
[2021-06-27] MEDS: HYDROCHLOROTHIAZIDE 25 MG TABLET PO SCH (08:44)
[2021-06-27] MEDS: VALSARTAN 80 MG TABLET PO SCH (08:44)
[2021-06-27] MEDS: METOPROLOL SUCCINATE 25 MG TAB.SR.24H PO SCH (08:44)
[2021-06-27 12:00] VITALS: BP 132/72
[2021-06-27 16:00] VITALS: BP 119/80
--- NOTE | 2021-06-27 19:10 | NUR ---
RN CLOSING NOTES NO SIGNIFICANT CHANGES THROUGHOUT THE SHIFT. NO SOB OR ANY DISTRESS NOTED. NO PAIN REPORTED AT THIS TIME. KEPT CLEAN AND COMFORTABLE. ALL DUE MEDS GIVEN. NEEDS ATTENDED. SAFETY MEASURES IN PLACE. WILL ENDORSE TO NIGHT RN FOR MAXIMILIANO.
--- NOTE | 2021-06-27 19:46 | NUR ---
RN OPENING NOTES RECEIVED PT IN BED WITH EYES CLOSED, AROUSABLE TO STIMULATION. A/O X2-3. PT IS INDONESIAN-SPEAKING. PT ON HIGH FLOW O2 AT 60LPM WITH FIO2 OF 100%. PT ON EXTERNAL PHARMACY BILLING ADJUDICATOR READING V PACING. PT HAS NO C/O PAIN OR DISCOMFORT AT THIS TIME. IV ACCESS IN LEFT HAND #20, INTACT AND PATENT. SAFETY PRECAUTIONS MAINTAINED. BED IN LOWEST LOCKED POSITION, HOB ELEVATED, SIDE RAILS UP X3, BED ALARM ON. CALL LIGHT AND TABLE WITHIN REACH. WILL CONTINUE WITH PLAN OF CARE.
[2021-06-27 20:00] VITALS: BP 113/70
[2021-06-27] MEDS: OXYBUTYNIN CHLORIDE ER 5 MG TAB PO SCH (21:23)
[2021-06-28] VITALS: BP 108/76
[2021-06-28 04:00] VITALS: BP 104/53
--- NOTE | 2021-06-28 06:20 | NUR ---
RN CLOSING NOTES PT IS IN BED WITH EYES CLOSED, AROUSABLE TO STIMULATION. A/O X2-3. PT IS ALGERIAN-SPEAKING. PT ON HIGH FLOW O2 AT 60LPM WITH FIO2 OF 100%. PT ON EXTERNAL FLATWORK FOLDER READING V PACING. PT HAS NO C/O PAIN OR DISCOMFORT AT THIS TIME. IV ACCESS IS INTACT, PATENT, AND FLUSHING WELL. ALL NEEDS HAVE BEEN MET. SAFETY PRECAUTIONS MAINTAINED AT ALL TIMES. BED IN LOWEST LOCKED POSITION, HOB ELEVATED, SIDE RAILS UP X3, BED ALARM ON. CALL LIGHT AND TABLE WITHIN REACH. WILL ENDORSE TO ONCOMING NURSE FOR MAXIMILIANO.
--- NOTE | 2021-06-28 07:20 | NUR ---
RN OPENING NOTES RECEIVED PT IN BED. A/O X 2-3. KUWAITI SPEAKING. ABLE TO VERBALIZE NEEDS. OXYGEN AT HIGH FLOW AT 60LPM WITH FIO2 OF 100%. IV SITE ON LEFT HAND #20 INTACT, PATENT AND FLUSHED. ON MANAGER NON PROFIT READING V PACING. NO PAIN REPORTED. SAFETY MEASURES IMPLEMENTED. CALL LIGHT WITHIN REACH. BED ALARM ON. HOB ELEVATED. BED LOCKED AND IN LOWEST POSITION WITH SIDE RAILS UP X3. APPLICABLE ISOLATION PRECAUTIONS IN PLACE. WILL CONTINUE TO MONITOR.
[2021-06-28 07:30] LABS: ALBUMIN 2.6 g/dL (3.4-5.0); BILIRUBIN,DIRECT 0.5 mg/dL (0.0-0.2); BILIRUBIN,TOTAL 1.1 mg/dL (0.2-1.0); TOTAL PROTEIN, SERUM 6.6 g/dL (6.4-8.2)
[2021-06-28 08:00] VITALS: BP 125/78
[2021-06-28] MEDS: LEVOTHYROXINE SODIUM 50 MCG TABLET PO SCH (08:33)
[2021-06-28] MEDS: DUTASTERIDE (0.5 MG) 0.5 MG CAPSULE PO SCH (08:33)
[2021-06-28] MEDS: DEXAMETHASONE SOD PHOSPHATE 10 MG/ML VIAL IV SCH (08:33)
[2021-06-28] MEDS: ZINC SULFATE 220 MG CAPSULE PO SCH (08:33)
[2021-06-28] MEDS: EZETIMIBE 10 MG TABLET PO SCH (08:33)
[2021-06-28] MEDS: ASPIRIN 81 MG TAB.CHEW PO SCH (08:33)
[2021-06-28] MEDS: DOCUSATE SODIUM 100 MG CAPSULE PO SCH ×2 (08:34→16:12)
[2021-06-28] MEDS: FUROSEMIDE 40 MG TABLET PO SCH (08:34)
[2021-06-28] MEDS: TAMSULOSIN 0.4 MG CAP.SR.24H PO SCH (08:34)
[2021-06-28] MEDS: ASCORBIC ACID 500 MG TABLET PO SCH ×2 (08:34→16:12)
[2021-06-28] MEDS: MECLIZINE HCL 25 MG TABLET PO SCH (08:34)
[2021-06-28] MEDS: CHOLECALCIFEROL 1,000 UNIT TABLET (VIT D3) PO SCH (08:34)
[2021-06-28] MEDS: VALSARTAN 80 MG TABLET PO SCH (08:35)
[2021-06-28] MEDS: HYDROCHLOROTHIAZIDE 25 MG TABLET PO SCH (08:35)
[2021-06-28] MEDS: DONEPEZIL 5 MG TABLET PO SCH (08:35)
[2021-06-28] MEDS: METOPROLOL SUCCINATE 25 MG TAB.SR.24H PO SCH (08:36)
[2021-06-28] MEDS: ENOXAPARIN SODIUM 40 MG/0.4 ML DISP.SYRIN SQ SCH ×2 (08:37→16:14)
[2021-06-28 12:00] VITALS: BP_SYST 120; BP_DIAS 53; BP_DIAS 75
--- NOTE | 2021-06-28 15:48 | NUR ---
RN NOTES REPORT GIVEN TO ELSA LARSEN FOR MAXIMILIANO.
[2021-06-28 16:00] VITALS: BP 120/75
--- NOTE | 2021-06-28 16:00 | NUR ---
DIRECTOR CLINICAL INFORMATION SERVICES NOTE RECEIVED PATIENT IN BED FROM INGE RN , ALERT , ORIENTED, ON HIGH FLOW ORDERED SATURATION 92% AT THIS TIME , ON TELE MONITOR SR HR 88, LT HAND HL INTACT, INSTRUCTED TO USE INTENSIVE SPIROMETER , KEEP CLEAN DRY , , ALL NEEDS ATTENDED , BED IN LOWEST AND LOCKED POSITION, WILL CONT TO MONITOR
--- NOTE | 2021-06-28 17:22 | NUR ---
MUSSEL OPENER NOTE PER FAMILY REQUEST WANTS TO REPEAT COVID TEST , CALLED TO IKER CROSS DNP STATED NOT INDICATED YET, WILL F\U
--- NOTE | 2021-06-28 18:29 | NUR ---
verification engineer closing notes Pt on high flow as ordered, saturation 92%. Encouraged to use incentive spirometer. Kept clean and dry. Plan of care discussed with family member. Safety measures are in place with bed in lowest locked position, with call light within reach. Will continue to monitor.
--- NOTE | 2021-06-28 18:51 | NUR ---
fur buyer Note New IV line started, right forearm gauge 22 saline lock, dressing is dry and in tact, flushing well with good blood return. Pt reposition and laying comfortably in bed. Assisted pt in using incentive spirometer. Bed in lowest locked position, call light within reach, all needs attended.
--- NOTE | 2021-06-28 19:10 | NUR ---
RN NOTE RECEIVED PATIENT IN BED RESTING ALERT ORIENTED X2-3 LATVIAN SPEAKING ON HIGH FLOW OXYGEN 60L FIO2:100% O2:90% IV SITE IS ON RIGHT FOREARM INTACT PATENT,CONTINENT TO BOWEL/BLADDER,AMBULATORY WITH ASSIST,SAFETY MEASURE IMPLEMENT,CALL LIGHT WITHIN REACH,BED IN LOW POSITION AND LOCKED,BED ALARM IS ON, CONTINUE TO MONITOR
[2021-06-28 20:00] VITALS: BP 136/53
[2021-06-28] MEDS: OXYBUTYNIN CHLORIDE ER 5 MG TAB PO SCH (21:31)
[2021-06-29] VITALS: BP 108/73
[2021-06-29 04:00] VITALS: BP 155/84
--- NOTE | 2021-06-29 07:07 | NUR ---
RN NOTE PATIENT REMAINS ON ALERT ORIENTED X2-3 VERBALLY RESPONSIVE ON HIGH FLOW OXYGEN 60L FIO2:100% O2:91%,ALL DUE MEDS GIVEN MD ORDERED KEEP CLEAN AND DRY ALL NEEDS MET ENDORSE NEXT COMING SHIFT FOR CONTINUATION OF CARE.
--- NOTE | 2021-06-29 07:30 | NUR ---
cardiopulmonary physical therapist Opening Notes Received pt in bed, a/o x3 German speaking. Pt is on high flow oxygen @55LPM with FiO2 of 100%. IV site on the R FA gauge 22 patent and flushed. Pt is on the director of cardiac rehabilitation SR of 89. No pain reported at this time. Safety measures in place with bed in the lowest locked position, HOB elevated as tolerated, side rails up x3, and call light within reach.
[2021-06-29 07:50] LABS: ALBUMIN 2.8 g/dL (3.4-5.0); BILIRUBIN,DIRECT 0.5 mg/dL (0.0-0.2); BILIRUBIN,TOTAL 1.3 mg/dL (0.2-1.0); TOTAL PROTEIN, SERUM 7.3 g/dL (6.4-8.2)
[2021-06-29 08:00] VITALS: BP 126/41
[2021-06-29] MEDS: ASPIRIN 81 MG TAB.CHEW PO SCH (08:40)
[2021-06-29] MEDS: MECLIZINE HCL 25 MG TABLET PO SCH (08:40)
[2021-06-29] MEDS: LEVOTHYROXINE SODIUM 50 MCG TABLET PO SCH (08:40)
[2021-06-29] MEDS: EZETIMIBE 10 MG TABLET PO SCH (08:40)
[2021-06-29] MEDS: CHOLECALCIFEROL 1,000 UNIT TABLET (VIT D3) PO SCH (08:41)
[2021-06-29] MEDS: ASCORBIC ACID 500 MG TABLET PO SCH ×2 (08:41→16:21)
[2021-06-29] MEDS: ZINC SULFATE 220 MG CAPSULE PO SCH (08:41)
[2021-06-29] MEDS: DONEPEZIL 5 MG TABLET PO SCH (08:42)
[2021-06-29] MEDS: VALSARTAN 80 MG TABLET PO SCH (08:42)
[2021-06-29] MEDS: TAMSULOSIN 0.4 MG CAP.SR.24H PO SCH (08:42)
[2021-06-29] MEDS: HYDROCHLOROTHIAZIDE 25 MG TABLET PO SCH (08:43)
[2021-06-29] MEDS: FUROSEMIDE 40 MG TABLET PO SCH (08:43)
[2021-06-29] MEDS: METOPROLOL SUCCINATE 25 MG TAB.SR.24H PO SCH (08:43)
[2021-06-29] MEDS: DUTASTERIDE (0.5 MG) 0.5 MG CAPSULE PO SCH (08:45)
[2021-06-29] MEDS: DEXAMETHASONE SOD PHOSPHATE 10 MG/ML VIAL IV SCH (08:45)
[2021-06-29] MEDS: ENOXAPARIN SODIUM 40 MG/0.4 ML DISP.SYRIN SQ SCH ×2 (08:45→17:31)
[2021-06-29] MEDS: DOCUSATE SODIUM 100 MG CAPSULE PO SCH ×2 (09:00→16:20)
[2021-06-29 12:00] VITALS: BP 124/70
[2021-06-29 16:00] VITALS: BP 103/68
--- NOTE | 2021-06-29 18:41 | NUR ---
toy painter Closing Note Pt is resting comfortably in bed. Pt has high flow O2 @55LPM, FiO2 100% and O2 saturation 90%. Pt is using urinal with clear/yellow urine, output 350ml on shift. Pt using bedside commode with assist. Pt has IV right forearm 22gauge, patent with dressing in tact. Safety measures in place with bed in lowest locked position, all needs attended, and call light within reach.
--- NOTE | 2021-06-29 19:10 | NUR ---
RN NOTE RECEIVED PATIENT IN BED RESTING ALERT ORIENTED X2-3 VERBALLY RESPONSIVE AMERICAN SPEAKING ON HIGH FLOW OXYGEN 60L FIO2:100% O2:88% IV SITE IS ON RIGHT FOREARM INTACT PATENT,CONTINET TO BOWEL/BLADDER SAFETY MEASURE IMPLEMENT,BED IN LOW POSITION AND LOCKED,BED ALARM IS COLLECTION SUPPORT SPECIALIST LIGHT WITHIN REACH CONTINUE TO MONITOR.
[2021-06-29 20:00] VITALS: BP 108/61
[2021-06-29] MEDS: OXYBUTYNIN CHLORIDE ER 5 MG TAB PO SCH (22:24)
[2021-06-30] VITALS: BP 101/66
[2021-06-30 04:00] VITALS: BP 109/62
--- NOTE | 2021-06-30 07:02 | NUR ---
RN NOTE PATIENT REMAINS ON ALERT ORIENTED 2-3 VERBALLY RESPONSIVE ON 60L HIGH FLOW OXYGEN FIO2:100% O2:91% IV SITE IS ON RIGHT FOREARM INTACT PATENT,ALL DUE MEDS GIVEN MD ORDERED KEPT CLEAN AND DRY ALL THE TIME,KEPT COMFORTABLE ENDORSE NEXT COMING SHIFT FOR CONTINUATION OF CARE.
--- NOTE | 2021-06-30 07:30 | NUR ---
RN NOTE PATIENT IS IN BED WITH HOB AT SEMI FOWLERS POSITION. PATIENT IS ON 60L HIGH FLOW AT 100%. PATIENT IS AOX3. RFA 22 IS PATENT AND INTACT. BED IS LOCKED IN THE LOWEST POSITION, 3 GUARD RAILS RAISED, CALL FRASER WITHIN REACH, AND ALL HOSPITAL SAFETY PRECAUTIONS ARE BEING FOLLOWED. WILL CONTINUE TO MONITOR THROUGHOUT SHIFT.
[2021-06-30 07:33] LABS: BASOPHILS % (AUTO) 0.1 % (0.0-2.0); EOSINOPHILS % (AUTO) 0.9 % (0.0-6.0); HEMATOCRIT 43 % (39-51); HEMOGLOBIN 14.4 g/dL (13.5-17.5); LYMPHOCYTES # (AUTO) 0.7 K/uL (0.8-4.8); LYMPHOCYTES % (AUTO) 5.5 % (20.0-44.0); MEAN CORPUSCULAR HGB CONC 33 g/dl (31.0-36.0); MEAN CORPUSCULAR VOLUME 93 fL (80-96); MONOCYTES # (AUTO) 0.6 K/uL (0.1-1.30); MONOCYTES % (AUTO) 4.9 % (2.0-12.0); NEUTROPHILS # (AUTO) 11.2 K/uL (1.8-8.9); NEUTROPHILS % (AUTO) 88.6 % (43.0-81.0); PLATELET COUNT (AUTO) 496 K/uL (150-450); RED BLOOD CELL COUNT(AUTO) 4.64 MIL/uL (4.5-6.0); WHITE BLOOD COUNT (AUTO) 12.6 K/uL (4.3-11.0)
[2021-06-30 08:00] VITALS: BP 106/68
[2021-06-30 08:03] LABS: ALBUMIN 2.8 g/dL (3.4-5.0); BILIRUBIN,DIRECT 0.3 mg/dL (0.0-0.2); CALCIUM, SERUM 8.9 mg/dL (8.5-10.1); MAGNESIUM 1.9 mg/dL (1.8-2.4); PHOSPHORUS 4.9 mg/dL (2.5-4.9); POTASSIUM 4.3 mmol/L (3.5-5.1); TOTAL PROTEIN, SERUM 6.5 g/dL (6.4-8.2)
[2021-06-30] MEDS: ZINC SULFATE 220 MG CAPSULE PO SCH (08:05)
[2021-06-30] MEDS: ASPIRIN 81 MG TAB.CHEW PO SCH (08:06)
[2021-06-30] MEDS: DEXAMETHASONE SOD PHOSPHATE 10 MG/ML VIAL IV SCH ×2 (08:06→09:00)
[2021-06-30] MEDS: HYDROCHLOROTHIAZIDE 25 MG TABLET PO SCH ×2 (08:06→08:46)
[2021-06-30] MEDS: VALSARTAN 80 MG TABLET PO SCH ×2 (08:06→08:46)
[2021-06-30] MEDS: DUTASTERIDE (0.5 MG) 0.5 MG CAPSULE PO SCH (08:06)
[2021-06-30] MEDS: TAMSULOSIN 0.4 MG CAP.SR.24H PO SCH (08:06)
[2021-06-30] MEDS: ASCORBIC ACID 500 MG TABLET PO SCH ×2 (08:07→16:53)
[2021-06-30] MEDS: DONEPEZIL 5 MG TABLET PO SCH (08:07)
[2021-06-30] MEDS: METOPROLOL SUCCINATE 25 MG TAB.SR.24H PO SCH ×2 (08:07→08:47)
[2021-06-30] MEDS: MECLIZINE HCL 25 MG TABLET PO SCH (08:08)
[2021-06-30] MEDS: FUROSEMIDE 40 MG TABLET PO SCH ×2 (08:08→08:46)
[2021-06-30] MEDS: LEVOTHYROXINE SODIUM 50 MCG TABLET PO SCH (08:08)
[2021-06-30] MEDS: CHOLECALCIFEROL 1,000 UNIT TABLET (VIT D3) PO SCH (08:08)
[2021-06-30] MEDS: DOCUSATE SODIUM 100 MG CAPSULE PO SCH ×2 (08:08→16:53)
[2021-06-30] MEDS: ENOXAPARIN SODIUM 40 MG/0.4 ML DISP.SYRIN SQ SCH ×2 (08:11→16:54)
[2021-06-30] MEDS: EZETIMIBE 10 MG TABLET PO SCH (08:12)
--- NOTE | 2021-06-30 08:47 | NUR ---
RN NOTE OKAY TO HOLD BP MEDS FOR SYSTOLIC <[address] ALARCON.
--- NOTE | 2021-06-30 09:18 | NUR ---
RN NOTE RFA 22G IV ACCESS IS INFILTRATED. ENDORSED TO SUZIE HUNTER FOR MAXIMILIANO.
[2021-06-30 10:26] LABS: BAND % (MANUAL) 1 % (0.0-5.0); EOSINOPHILS % (MANUAL) 1 % (0-4); LYMPHOCYTES % (MANUAL) 5 % (16-48); MONOCYTES % (MANUAL) 3 % (0-11.0); MYELOCYTES % 2 % (0-0); NEUTROPHILS % (MANUAL) 88 (42-76)
--- NOTE | 2021-06-30 12:00 | NUR ---
MS RN NOTE ALL NEEDS ATTENDED CONT TO USE IS , SATURATION 90%
[2021-06-30 16:00] VITALS: BP 113/81
--- NOTE | 2021-06-30 16:00 | NUR ---
MS RN NOTE MID LINE PLACED BY MID LINE NURSE LT UPPER ARM BERT 18
--- NOTE | 2021-06-30 18:02 | NUR ---
telephone services sales representative note patient say cant swallow eval even, placed denture in mouth changed to puree diet, will f\u
--- NOTE | 2021-06-30 18:24 | NUR ---
LEAD HANDLER Closing Notes Pt is resting in bed side lying position on high flow oxygen 60LPM, FiO2 100%, O2 saturation of 90% and SR 99. Pt showing no s/sx of pain or distress. Encourage pt to use incentive spirometer Pt diet updated to puree to maintain optimal nutrition. Safety measures in place, bed in lowest locked position with side rails up x3, call light within reach, all needs attended.
--- NOTE | 2021-06-30 19:20 | NUR ---
RN NOTE RECEIVED PATIENT IN BED RESTING ALERT ORIENTED 2-3 VERBALLY RESPONSIVE ON 60L OXYGEN FIO2:100% AND NON REBREATHER MASK 15 L O2:91% IV SITE IS ON RIGHT AC INTACT PATENT AND LEFT UPPER ARM MID LINE INTACT PATENT,CONTINENT TO BOWEL/BLADDER,SAFETY MEASURE IMPLEMENT BED IN LOW POSITION AND LOCKED BED ALARM IS ON CONTINUE TO MONITOR.
[2021-06-30 20:00] VITALS: BP 104/61
[2021-06-30] MEDS: OXYBUTYNIN CHLORIDE ER 5 MG TAB PO SCH (22:06)
[2021-07-01] VITALS: BP 109/72
[2021-07-01 04:42] VITALS: BP 115/74
[2021-07-01 06:34] LABS: BASOPHILS # (AUTO) 0.1 K/uL (0.0-0.2); BASOPHILS % (AUTO) 0.4 % (0.0-2.0); EOSINOPHILS % (AUTO) 1.4 % (0.0-6.0); HEMATOCRIT 44 % (39-51); LYMPHOCYTES # (AUTO) 0.9 K/uL (0.8-4.8); LYMPHOCYTES % (AUTO) 7.1 % (20.0-44.0); MEAN CORPUSCULAR HGB CONC 34 g/dl (31.0-36.0); MEAN CORPUSCULAR VOLUME 92 fL (80-96); MONOCYTES # (AUTO) 0.7 K/uL (0.1-1.30); MONOCYTES % (AUTO) 5.2 % (2.0-12.0); NEUTROPHILS # (AUTO) 11.1 K/uL (1.8-8.9); NEUTROPHILS % (AUTO) 85.9 % (43.0-81.0); PLATELET COUNT (AUTO) 453 K/uL (150-450); RED BLOOD CELL COUNT(AUTO) 4.76 MIL/uL (4.5-6.0); WHITE BLOOD COUNT (AUTO) 12.9 K/uL (4.3-11.0)
--- NOTE | 2021-07-01 06:50 | NUR ---
RN NOTE PATIENT REMAINS ON ALERT ORIENTED 2-3 VERBALLY RESPONSIVE K[place]AKH SPEAKING ON 60L HIGH FLOW OXYGEN AND 15L NON REBREATHER MASK O2:91% IV SITE IS ON LEFT UPPER ARM MIDLINE AND RIGHT FOREARM INTACT PATENT,ALL DUE MEDS GIVEN MD ORDERED KEPT CLEAN AND DRY ALL THE TIME,KEPT CALL LIGHT WITHIN REACH,ALL NEEDS MET ENDORSE NEXT COMING SHIFT FOR CONTINUATION OF CARE
--- NOTE | 2021-07-01 07:10 | NUR ---
RN OPENING NOTES RECEIVED PT IN BED. A/O 2-3. CZECH SPEAKING, UNDERSTANDS [place]. ON 60L O2 FIO2: 100% AND NON REBREATHER MASK 15L SATURATING @93%. NO SOB OR ANY S/S OF RESPIRATORY DISTRESS NOTED. IV SITE ON RAC #24 AND JUNIE MIDLINE BOTH INTACT, PATENT AND FLUSHED. ABLE TO USE BEDSIDE COMMODE. SAFETY MEASURES IMPLEMENTED. CALL LIGHT WITHIN REACH. BED LOCKED AND IN LOWEST POSITION WITH SIDE RAILS UP X2. BED ALARM ON. WILL CONTINUE TO MONITOR.
[2021-07-01 07:11] LABS: CALCIUM, SERUM 9.1 mg/dL (8.5-10.1); CREATININE 1.1 mg/dL (0.6-1.3); PHOSPHORUS 4.4 mg/dL (2.5-4.9); POTASSIUM 3.6 mmol/L (3.5-5.1)
[2021-07-01 08:00] VITALS: BP 134/78
[2021-07-01] MEDS: MECLIZINE HCL 25 MG TABLET PO SCH (08:26)
[2021-07-01] MEDS: METOPROLOL SUCCINATE 25 MG TAB.SR.24H PO SCH (08:26)
[2021-07-01] MEDS: EZETIMIBE 10 MG TABLET PO SCH (08:27)
[2021-07-01] MEDS: FUROSEMIDE 40 MG TABLET PO SCH (08:27)
[2021-07-01] MEDS: TAMSULOSIN 0.4 MG CAP.SR.24H PO SCH (08:28)
[2021-07-01] MEDS: ZINC SULFATE 220 MG CAPSULE PO SCH (08:28)
[2021-07-01] MEDS: HYDROCHLOROTHIAZIDE 25 MG TABLET PO SCH (08:28)
[2021-07-01] MEDS: VALSARTAN 80 MG TABLET PO SCH (08:29)
[2021-07-01] MEDS: DONEPEZIL 5 MG TABLET PO SCH (08:29)
[2021-07-01] MEDS: CHOLECALCIFEROL 1,000 UNIT TABLET (VIT D3) PO SCH (08:29)
[2021-07-01] MEDS: DEXAMETHASONE SOD PHOSPHATE 10 MG/ML VIAL IV SCH (08:30)
[2021-07-01] MEDS: ASCORBIC ACID 500 MG TABLET PO SCH ×2 (08:30→17:19)
[2021-07-01] MEDS: DOCUSATE SODIUM 100 MG CAPSULE PO SCH ×2 (08:30→17:19)
[2021-07-01] MEDS: ASPIRIN 81 MG TAB.CHEW PO SCH (08:30)
[2021-07-01] MEDS: ENOXAPARIN SODIUM 40 MG/0.4 ML DISP.SYRIN SQ SCH ×2 (08:32→17:22)
[2021-07-01] MEDS: DUTASTERIDE (0.5 MG) 0.5 MG CAPSULE PO SCH (08:39)
[2021-07-01] MEDS: LEVOTHYROXINE SODIUM 50 MCG TABLET PO SCH (08:52)
[2021-07-01 12:00] VITALS: BP 114/72
[2021-07-01 16:00] VITALS: BP_SYST 104; BP_SYST 121; BP_DIAS 68; BP_DIAS 82
--- NOTE | 2021-07-01 19:58 | NUR ---
RN NOTE PATIENT IN BED, ALERT AND ORIENTED X2-3. ON HIGH FLOW 60L FIO2 100% AND NRB MASK 15L, O2 SAT 90%. NO SIGNS OF DISCOMFORT OR PAIN. IV ACCESS ON RIGHT AC # 24 AND JUNIE MIDLINE PATENT AND INTACT. ON ISOLATION PRECAUTIONS. BED LOCKED AND IN LOWEST POSITION. CALL LIGHT WITHIN REACH. ALL NEEDS ANTICIPATED.
[2021-07-01 20:00] VITALS: BP 110/67
[2021-07-01] MEDS: OXYBUTYNIN CHLORIDE ER 5 MG TAB PO SCH (21:22)
[2021-07-02] VITALS: BP 118/71
[2021-07-02 04:00] VITALS: BP 122/53
[2021-07-02 06:48] LABS: BASOPHILS % (AUTO) 0.2 % (0.0-2.0); EOSINOPHILS % (AUTO) 0.9 % (0.0-6.0); HEMATOCRIT 42 % (39-51); HEMOGLOBIN 14.1 g/dL (13.5-17.5); LYMPHOCYTES # (AUTO) 0.9 K/uL (0.8-4.8); LYMPHOCYTES % (AUTO) 6.4 % (20.0-44.0); MEAN CORPUSCULAR HGB CONC 33 g/dl (31.0-36.0); MEAN CORPUSCULAR VOLUME 93 fL (80-96); MONOCYTES # (AUTO) 0.7 K/uL (0.1-1.30); MONOCYTES % (AUTO) 5.3 % (2.0-12.0); NEUTROPHILS # (AUTO) 11.7 K/uL (1.8-8.9); NEUTROPHILS % (AUTO) 87.2 % (43.0-81.0); PLATELET COUNT (AUTO) 394 K/uL (150-450); RED BLOOD CELL COUNT(AUTO) 4.54 MIL/uL (4.5-6.0); WHITE BLOOD COUNT (AUTO) 13.4 K/uL (4.3-11.0)
[2021-07-02 06:57] LABS: CALCIUM, SERUM 8.8 mg/dL (8.5-10.1); PHOSPHORUS 3.8 mg/dL (2.5-4.9); POTASSIUM 3.8 mmol/L (3.5-5.1)
--- NOTE | 2021-07-02 06:57 | NUR ---
RN NOTE PATIENT ALERT AND ORIENTED X2-3. ON HIGH FLOW 60L FIO2 100% AND NRB MASK 15L, O2 SAT 91%. IV ACCESS ON RIGHT AC # 24 AND JUNIE MIDLINE PATENT AND INTACT. ON ISOLATION PRECAUTIONS. KEPT CLEAN AND DRY. ALL DUE MEDS GIVEN ORDERED. BED LOCKED AND IN LOWEST POSITION. CALL LIGHT WITHIN REACH. WILL ENDORSE TO AM SHIFT.
--- NOTE | 2021-07-02 07:30 | NUR ---
RN NOTE PT FOUND IN SEMI FOWLERS POSITION DISPLAYING MILD S/S OF DISTRESS, PT ENDORSES NO PAIN AND IS BREATHING IS MILD DIFFICULTY. PT HAS 60L HIFLO NC AND STATING AT 88%. PT IS A&OX4 WITH ELEMENTS OF CONFUSION. COVID PRECAUTIONS IN PLACE, PT ON HEART AND RESPIRATORY MONITOR.
[2021-07-02 08:00] VITALS: BP 127/71
[2021-07-02] MEDS: LEVOTHYROXINE SODIUM 50 MCG TABLET PO SCH (08:14)
[2021-07-02] MEDS: METOPROLOL SUCCINATE 25 MG TAB.SR.24H PO SCH (09:01)
[2021-07-02] MEDS: VALSARTAN 80 MG TABLET PO SCH (09:01)
[2021-07-02] MEDS: DOCUSATE SODIUM 100 MG CAPSULE PO SCH ×2 (09:02→17:48)
[2021-07-02] MEDS: ASPIRIN 81 MG TAB.CHEW PO SCH (09:02)
[2021-07-02] MEDS: FUROSEMIDE 40 MG TABLET PO SCH (09:02)
[2021-07-02] MEDS: DONEPEZIL 5 MG TABLET PO SCH (09:02)
[2021-07-02] MEDS: EZETIMIBE 10 MG TABLET PO SCH (09:02)
[2021-07-02] MEDS: DUTASTERIDE (0.5 MG) 0.5 MG CAPSULE PO SCH (09:02)
[2021-07-02] MEDS: MECLIZINE HCL 25 MG TABLET PO SCH (09:02)
[2021-07-02] MEDS: HYDROCHLOROTHIAZIDE 25 MG TABLET PO SCH (09:02)
[2021-07-02] MEDS: ASCORBIC ACID 500 MG TABLET PO SCH ×2 (09:02→17:48)
[2021-07-02] MEDS: DEXAMETHASONE SOD PHOSPHATE 10 MG/ML VIAL IV SCH (09:03)
[2021-07-02] MEDS: TAMSULOSIN 0.4 MG CAP.SR.24H PO SCH (09:03)
[2021-07-02] MEDS: CHOLECALCIFEROL 1,000 UNIT TABLET (VIT D3) PO SCH (09:03)
[2021-07-02] MEDS: ZINC SULFATE 220 MG CAPSULE PO SCH (09:03)
[2021-07-02] MEDS: ENOXAPARIN SODIUM 40 MG/0.4 ML DISP.SYRIN SQ SCH ×2 (09:05→17:49)
[2021-07-02 12:00] VITALS: BP 118/77
[2021-07-02 16:00] VITALS: BP 111/70
--- NOTE | 2021-07-02 19:30 | NUR ---
RN NOTE PT FOUND IN SEMI FOWLERS POSITION DISPLAYING MILD S/S OF DISTRESS, PT ENDORSES NO PAIN AND IS BREATHING WITH MILD DIFFICULTY. PT HAS 60L HIFLO NC AND 15L RNB STATING AT 90%. PT IS A&OX4 WITH ELEMENTS OF CONFUSION. COVID PRECAUTIONS IN PLACE, PT ON HEART AND RESPIRATORY MONITOR. CARBURETOR SPECIALIST GIVEN REPORT, ALL QUESTIONS ANSWERED. PT CARE TRANSFERRED FOR MAXIMILIANO.
[2021-07-02 20:00] VITALS: BP 97/61
--- NOTE | 2021-07-02 20:00 | NUR ---
RN NOTE RECEIVED PT IN BED, ON HFNC 60L, 100% AND WITH NRB MASK SATING AT 88-8 Addendum: 07/02/21 at 2156 by CORNELL CHRISTIANSON RN SATING AT 88-90%. NO DISTRESS WERE NOTED. PT DENIES ANY PAIN AT THIS TIME. KEPT HOB ELEVATED. MIDLINE ON JUNIE PATENT AND INTACT, FLUSHES WELL. ON TELE MONITORING SHOWS SR WITH HR OF 76. NO RESTRAINTS, PT COMPLIANT WITH O2 THERAPY WILL CONTINUE TO MONITOR. ALL SAFETY MEASURES IN PLACE, CALL LIGHT WITHIN REACH.
[2021-07-02] MEDS: OXYBUTYNIN CHLORIDE ER 5 MG TAB PO SCH (22:03)
[2021-07-03] VITALS (12 sets, daily range): BP systolic 93–119; BP diastolic 45–82
--- NOTE | 2021-07-03 07:01 | NUR ---
RN NOTE PT SLEEPING AROUSES EASILY. CONTINUE ON O2 THERAPY. NO DISTRESS NOTED. WITH EPISODES OF SOB WHEN REPOSITIONING, AND WHEN GOING BEDSIDE COMMODE, PT SATING 94 % AT REST, DESATS TO 83-89 ON MOVEMENT. ON FREQUENT VISUAL CHECKS, ATTENDED NEEDS. PT CONTINENT. REMAIN AFEBRILE. ENDORSED TO NEXT SHIFT NURSE FOR MAXIMILIANO. ALL SAFETY MEASURES MAINTAINED.
--- NOTE | 2021-07-03 07:05 | NUR ---
RN NOTES RECEIVED PT ON BED, GIBRALT[place] SPEAKING, ALERT/ ON HIGH FLOW O2 AND NONREBREATHER MASK, ON TELE SR HR IN 70'S , RAC AND L UPPER ARM MIDLINE SITE CLEAN, DRY AND INTACT, SR UP x3, CALL LIGHT WITHIN EASY REACH, BED LOCKED AND IN LOWEST POSITION, CONTINUE TO MONITOR
[2021-07-03 07:18] LABS: BASOPHILS # (AUTO) 0.1 K/uL (0.0-0.2); BASOPHILS % (AUTO) 0.4 % (0.0-2.0); EOSINOPHILS % (AUTO) 0.4 % (0.0-6.0); HEMATOCRIT 42 % (39-51); HEMOGLOBIN 14.4 g/dL (13.5-17.5); LYMPHOCYTES # (AUTO) 0.9 K/uL (0.8-4.8); LYMPHOCYTES % (AUTO) 5.6 % (20.0-44.0); MEAN CORPUSCULAR HGB CONC 34 g/dl (31.0-36.0); MEAN CORPUSCULAR VOLUME 93 fL (80-96); MONOCYTES # (AUTO) 0.5 K/uL (0.1-1.30); MONOCYTES % (AUTO) 3.2 % (2.0-12.0); NEUTROPHILS # (AUTO) 14.7 K/uL (1.8-8.9); NEUTROPHILS % (AUTO) 90.4 % (43.0-81.0); PLATELET COUNT (AUTO) 359 K/uL (150-450); RED BLOOD CELL COUNT(AUTO) 4.58 MIL/uL (4.5-6.0); WHITE BLOOD COUNT (AUTO) 16.3 K/uL (4.3-11.0)
[2021-07-03] MEDS: EZETIMIBE 10 MG TABLET PO SCH (08:18)
[2021-07-03] MEDS: CHOLECALCIFEROL 1,000 UNIT TABLET (VIT D3) PO SCH (08:18)
[2021-07-03] MEDS: ASPIRIN 81 MG TAB.CHEW PO SCH (08:18)
[2021-07-03] MEDS: TAMSULOSIN 0.4 MG CAP.SR.24H PO SCH (08:19)
[2021-07-03] MEDS: ASCORBIC ACID 500 MG TABLET PO SCH ×2 (08:19→16:36)
[2021-07-03] MEDS: METOPROLOL SUCCINATE 25 MG TAB.SR.24H PO SCH (08:19)
[2021-07-03] MEDS: LEVOTHYROXINE SODIUM 50 MCG TABLET PO SCH (08:19)
[2021-07-03] MEDS: VALSARTAN 80 MG TABLET PO SCH (08:19)
[2021-07-03] MEDS: DUTASTERIDE (0.5 MG) 0.5 MG CAPSULE PO SCH (08:20)
[2021-07-03] MEDS: HYDROCHLOROTHIAZIDE 25 MG TABLET PO SCH (08:21)
[2021-07-03] MEDS: DOCUSATE SODIUM 100 MG CAPSULE PO SCH ×3 (08:21→16:39)
[2021-07-03] MEDS: DEXAMETHASONE SOD PHOSPHATE 10 MG/ML VIAL IV SCH (08:21)
[2021-07-03] MEDS: ENOXAPARIN SODIUM 40 MG/0.4 ML DISP.SYRIN SQ SCH ×2 (08:22→16:37)
[2021-07-03] MEDS: MECLIZINE HCL 25 MG TABLET PO SCH (08:23)
[2021-07-03] MEDS: DONEPEZIL 5 MG TABLET PO SCH (08:23)
[2021-07-03] MEDS: ZINC SULFATE 220 MG CAPSULE PO SCH (08:25)
[2021-07-03] MEDS: FUROSEMIDE 40 MG TABLET PO SCH (08:25)
[2021-07-03] MEDS: FAMOTIDINE (20 MG) 20 MG TABLET PO SCH ×2 (09:04→21:00)
[2021-07-03] MEDS ORDERED: VANCOMYCIN 1.25 GM in IV D5W 250 ML IV ONE (10:30)
[2021-07-03] MEDS: CEFTRIAXONE 2 G in IV D5W 100 ML IV SCH (10:50)
[2021-07-03 11:24] LABS: BILIRUBIN,DIRECT 0.4 mg/dL (0.0-0.2); BILIRUBIN,TOTAL 1.2 mg/dL (0.2-1.0)
[2021-07-03 11:30] LABS: CALCIUM, SERUM 8.6 mg/dL (8.5-10.1); CREATININE 1.2 mg/dL (0.6-1.3); POTASSIUM 4.4 mmol/L (3.5-5.1)
--- NOTE | 2021-07-03 11:30 | NUR ---
RN NOTES DR ALARCON NOTIFIED REGARDING LA 2.4 AND 2.6,
[2021-07-03] MEDS: ENSURE ENLIVE 237 ML LIQUID (VANILLA) PO SCH ×2 (12:38→16:38)
--- NOTE | 2021-07-03 13:00 | NUR ---
RN NOTES PT ON NONREBREATHER AND HIGH FLOW O2 AND WANTS TO GET OUT OF THE BED TO BSC AT TIMES , O2 SAT DROPS TO 80'S WHEN PT IS OUT OF THE BED ,ADVISED PT TO STAY IN BED AND USE URINAL AND BEDPAN .
--- NOTE | 2021-07-03 18:00 | NUR ---
RN NOTES PT IS STAYS ON HIGH FLOW AT 100% AND NON REBREATHER MASK , O2 SAT 88-91%, ENCOURAGED PT TO TAKE SLOW AND DEEP BREATH . PT IS ALERT AND TALKATIVE , NO SIGNIFICANT CHANGES NOTED ON THIS SHIFT , WILL ENDORSE TO DIRECTOR OF PROFESSIONAL SERVICES NURSE FOR CONTINUITY OF CARE .
--- NOTE | 2021-07-03 18:45 | NUR ---
RN NOTES PT IS ANXIOUS AT THIS, O2 SAT 86%-88%, PT IS ALERT, DR ANTHONY ALFED, ABG ORDER PER MD ORDER .WILL ENDOSE TO CONVEYOR ATTENDANT NURSE FOR CONTINUITY OF CARE.
[2021-07-03 19:41] LABS: ABG BASE EXCESS 3.4 mmol/L; ABG OXYGEN SATURATION 86.3 % (92.0-98.5); ABG PH 7.502 (7.350-7.450); ABG PO2 49.9 mmHg (75.0-100.0); AaDO2 629.1 mmHg; COHb 0.6 % (0.5-1.5); MetHb 0.2 % (0.0-1.5); O2Hb 85.6 % (94.0-97.0); SITE, ABG Right Radial; VENT MODE, BG HFNC 60L 100% + 15lpm NRB
--- NOTE | 2021-07-03 19:58 | NUR ---
TELE-1/CORPORATE SALES MANAGER ABG RESULTS RELAYED TO DR. CRUZ. ORDER TO TRANSFER TO ICU AND CALL EDUCATIONAL RESOURCE CENTER TEACHER FOR FURTHER ORDERS. DR. HELMS CALLED AND WANTS THE PT PRONED IF POSSIBLE. REPORT CALLED TO CURTIS WANG IN ICU FOR CONT OF CARE. PT TRANSFERRED TO ROOM 262 VIA ACLS PROTOCOL.
--- NOTE | 2021-07-03 20:00 | NUR ---
telephone sex worker notes spoke to Dr Hannon to kept o2 sat>85% order noted and carried out.
--- NOTE | 2021-07-03 20:28 | NUR ---
TELE-1/CRM ARCHITECT PT SON RICARDO JAIN [phone] CALLED AND UPDATED ABOUT PT TRANSFER.
--- NOTE | 2021-07-03 20:30 | NUR ---
ICU/PAINT ROLLER COVERS SUPERVISOR PT TRANSFER TO ICU FOR DESATURATION AND POOR ABG WAS RESULTED TO ODETTE NURSE. MACHINE MARKER FEED HOUSE SUPERVISOR MACHINE MARKER SAID TO TRANSFER PT TO ICU AND KEEP SATURATION GREATER THAN 85%
[2021-07-03] MEDS: OXYBUTYNIN CHLORIDE ER 5 MG TAB PO SCH (22:00)
--- NOTE | 2021-07-03 22:10 | NUR ---
ICU/ACCESSIBILITY LIFT TECHNICIAN PT IS LETHARGIC UNABLE TO GIVE MEDICATION FOR 2100 OR 2200 DUE TO POSSIBLE ASPIRATION. WILL CONTINUE TO MONITOR THIS PT.
[2021-07-03] MEDS ORDERED: VANCOMYCIN HCL 0.75 GM in IV D5W 250 ML IV SCH (23:00)
[2021-07-04] VITALS (25 sets, daily range): BP systolic 88–124; BP diastolic 52–82
--- NOTE | 2021-07-04 00:10 | NUR ---
ICU/DIRECTOR MARKETING PT WAS PULLED UP AND REPOSITIONED FOR COMFORT AND CARE, PT CONTINUES TO SLIDE DOWN THE BED AND TIRED TO REMOVE THE MASK. PT SAID HE WANTS THE DOOR OPEN. HAVE TIED MANY TIMES TO DO REORIENTATION, IT'S DIFFICULT DUE TO LANGUE BARRIER AND PT HAS DEMENTIA.
--- NOTE | 2021-07-04 02:45 | NUR ---
ICU/VP OF GLOBAL MARKETING PT CONTINUERS TO TRY TO REMOVE THE HIGH FLOW AND NRB MASK. PT REQUIRES FREQUENT ORIENTATION. PT WAS CLEANED AND PULLED UP IN BED, SAT'S ARE 86-84%.
[2021-07-04 04:56] LABS: CALCIUM, SERUM 8.9 mg/dL (8.5-10.1); CREATININE 1.1 mg/dL (0.6-1.3); POTASSIUM 3.7 mmol/L (3.5-5.1)
--- NOTE | 2021-07-04 07:52 | NUR ---
KNIT GOODS CUTTER HAND OPENING NOTE RECEIVED REPORT FROM PM NURSE.PATIENT IN BED WITH HIGH FLOW O2 WITH NON-REBREATHER.AWAKE CONFUSED,O2 SAT 85-87%.RR 25-30%.ABG DONE .O2 COREALATING WITH SO2.IV LINE IS INTACT AND PATENT.ON SINUS RHYTHM WITH PACING IN BETWEEN.HR IN 90'S.BED IS LOW AND IN LOCKED POSITION.CALL LIGHT IN REACH.BED ALARM IS ON.SRX3.WILL VISHAL UE TO MONITOR.UNABLE TO DO PRONE POSITION BECAUSE OF PATIENT CONDITION.
[2021-07-04 07:53] LABS: ABG BASE EXCESS 3.3 mmol/L; ABG OXYGEN SATURATION 85.5 % (92.0-98.5); ABG PCO2 34.7 mmHg (35.0-45.0); ABG PH 7.495 (7.350-7.450); ABG PO2 50.2 mmHg (75.0-100.0); AaDO2 628.1 mmHg; COHb 0.4 % (0.5-1.5); MetHb 0.2 % (0.0-1.5); SITE, ABG Right Radial; VENT MODE, BG HFNC 100%+NRB
[2021-07-04] MEDS: ENSURE ENLIVE 237 ML LIQUID (VANILLA) PO SCH ×3 (08:00→17:00)
[2021-07-04] MEDS: ASPIRIN 81 MG TAB.CHEW PO SCH (08:09)
[2021-07-04] MEDS: MECLIZINE HCL 25 MG TABLET PO SCH (08:09)
[2021-07-04] MEDS: CHOLECALCIFEROL 1,000 UNIT TABLET (VIT D3) PO SCH (08:10)
[2021-07-04] MEDS: ASCORBIC ACID 500 MG TABLET PO SCH ×2 (08:10→16:04)
[2021-07-04] MEDS: ZINC SULFATE 220 MG CAPSULE PO SCH (08:10)
[2021-07-04] MEDS: TAMSULOSIN 0.4 MG CAP.SR.24H PO SCH (08:10)
[2021-07-04] MEDS: DONEPEZIL 5 MG TABLET PO SCH (08:10)
[2021-07-04] MEDS: FAMOTIDINE (20 MG) 20 MG TABLET PO SCH ×2 (08:10→20:28)
[2021-07-04] MEDS: DEXAMETHASONE SOD PHOSPHATE 10 MG/ML VIAL IV SCH (08:11)
[2021-07-04] MEDS: FUROSEMIDE 40 MG TABLET PO SCH (08:11)
[2021-07-04] MEDS: LEVOTHYROXINE SODIUM 50 MCG TABLET PO SCH (08:11)
[2021-07-04] MEDS: ENOXAPARIN SODIUM 40 MG/0.4 ML DISP.SYRIN SQ SCH ×2 (08:11→16:06)
[2021-07-04] MEDS: DOCUSATE SODIUM 100 MG CAPSULE PO SCH ×2 (08:11→16:04)
[2021-07-04] MEDS: EZETIMIBE 10 MG TABLET PO SCH (08:11)
[2021-07-04] MEDS: ALBUTEROL SULFATE 8 GM HFA.AER.AD IH PRN ×2 (08:12→13:46)
[2021-07-04 08:19] LABS: EOSINOPHILS % (AUTO) 0.2 % (0.0-6.0); HEMATOCRIT 44 % (39-51); HEMOGLOBIN 14.7 g/dL (13.5-17.5); LYMPHOCYTES # (AUTO) 0.8 K/uL (0.8-4.8); LYMPHOCYTES % (AUTO) 4.7 % (20.0-44.0); MEAN CORPUSCULAR HGB CONC 33 g/dl (31.0-36.0); MEAN CORPUSCULAR VOLUME 93 fL (80-96); MONOCYTES # (AUTO) 1.2 K/uL (0.1-1.30); NEUTROPHILS # (AUTO) 15.1 K/uL (1.8-8.9); NEUTROPHILS % (AUTO) 88.1 % (43.0-81.0); PLATELET COUNT (AUTO) 358 K/uL (150-450); RED BLOOD CELL COUNT(AUTO) 4.75 MIL/uL (4.5-6.0); WHITE BLOOD COUNT (AUTO) 17.2 K/uL (4.3-11.0)
[2021-07-04] MEDS: HYDROCHLOROTHIAZIDE 25 MG TABLET PO SCH (08:46)
[2021-07-04] MEDS: METOPROLOL SUCCINATE 25 MG TAB.SR.24H PO SCH (08:46)
[2021-07-04] MEDS: VALSARTAN 80 MG TABLET PO SCH (08:46)
--- NOTE | 2021-07-04 09:00 | NUR ---
SEEN BY UPDATED ABOUT PATIENT CONDITION ,SOB AND O2 SAT WITH LABS AND ABG REPORT.WILL FOLOW UP WITH MATERIAL HANDLER 1ST SHIFT.WILL CONTINUE TO MONITOR.
--- NOTE | 2021-07-04 09:30 | NUR ---
SEEN BY WINDOW TREATMENT INSTALLER PATIENT'S CONDITION UPDATED WITH ABG HIGH RR AND O2 SAT,HE WILL TALK TO THE FAMILY ABOUT PLAN OF CARE.
[2021-07-04] MEDS: CEFTRIAXONE 2 G in IV D5W 100 ML IV SCH (10:06)
[2021-07-04] MEDS: VANCOMYCIN 1.25 GM in IV D5W 250 ML IV SCH (11:04)
--- NOTE | 2021-07-04 11:15 | NUR ---
SPOKE TO PATIENT FAMILY AND GOT CALL FROM FAMILY SPOKE TO SON ZAY ,HE WANT TO TALK TO CHARGE NURSE,MADE AWARE THAT CHANGE OF CODE STATUS TO DNR/DNI.NO CHEST COMPRESSIONS AND NO INTUBATION.CODE STATUS CHNGED.HAD CALL TO FAMILY ALEX KEVIN FAMILY SEEN PATIENT BY A VEDIO CALL.ANSWERED ALL QUESTIONS.WILL CONTINUE TO MONITOR.
[2021-07-04] MEDS: DUTASTERIDE (0.5 MG) 0.5 MG CAPSULE PO SCH (11:57)
--- NOTE | 2021-07-04 13:48 | NUR ---
RT NOTE PATIENT'S HIGH FLOW NASAL CANNULA MOVES WITH PATIENT MOVEMENT. ADDED MEPILEX ON EARS AND SECURED NASAL CANNULA WITH TAPE. PATIENT WAS REPOSITIONED AND CANNULA REMAINED IN PLACE. WILL CONTINUE TO MONITOR.
--- NOTE | 2021-07-04 15:53 | NUR ---
PATIENT IS UNABLE TO DO PRONE POSITION,ENCOURAGED TO DO TURN AND REPOSITION BUT PATIENT IS NOT TOKLERATING.STAYING IN SUPINE WITH HOB ELEVATED TO STAY COMFORTABLE. MADE AWARE ABOUT POOR PO INTAKE AND LOW BP AT TIMES IN LOW 90'S.NNO NOW .WILL CONTINUE TO MONITOR.
[2021-07-04 16:14] LABS: BILIRUBIN,URINE NEGATIVE (NEGATIVE); COLOR,URINE YELLOW (YELLOW); LEUKOCYTE ESTERASE ,URINE NEGATIVE (NEGATIVE); NITRITE, URINE NEGATIVE (NEGATIVE); PH,URINE 5.5 (5.0-8.0); PROTEIN,URINE NEGATIVE (NEGATIVE); UGLUCOSE NEGATIVE (NEGATIVE); UROBILINOGEN,URINE 0.2 EU/dL (0.2)
[2021-07-04] MEDS: CEFEPIME 2 GM in IV D5W 100 ML IV SCH (16:38)
--- NOTE | 2021-07-04 17:37 | NUR ---
SPOKE TO SON ZAY,OK TO GIVE INFORMATION TO [facility] FAMILY MEMBER AND DO FACE TIME WITH PATIENT.FAMILY MEMBER SPOKE TO PATIENT APPRECIATED CARE.
--- NOTE | 2021-07-04 18:23 | NUR ---
PATIENT ON HIGH FLOW O2 WITH NON REBREATHER SATURATING 88%,DNR/DNI STATUS.ALL NEEDS MET.APTIENT IS STILL NON COMPLIANT WITH MASK AND EDUCATED HIM WITH HELP OF CHARGE NURSE TO TRANSLATE IN PATIENT LANGUAGE.FOR POOR PO INATKE PER TO PLACE NGT IF NECESSARY.WILL FOLLOW UP WITH INSERTION OF NGT AND TUBE FEEDING BECAUSE PATIENT IS RESTLESS AND ASPIRATION RISK.BED IS LOW AND IN LOCKED POSITION.CALL LIGHT IN REACH.BED ALARM ON SRX3.WILL ENDORSE TO PM NURSE FOR MAXIMILIANO.
--- NOTE | 2021-07-04 19:20 | NUR ---
ICU/SERVICING REP RECEIVED REPORT FROM DAY SHIFT NURSE. SEE FLOWSHEET FOR ASSESSMENT, AT THIS TIME THERE IS NO SKIN ISSUES WHICH NEED TO ADDRESSED.PT IS CURRENTLY ON HIGH FLOW PLUS 40/100% ALONG NON REBREATHER MASK AT 15 LITERS, SATURATION IS 84-87%. PT APPEARS TO BE AGITATED. POSSIBLE SUN DOWN SYNDROME. WILL CONTINUE TO MONITOR THIS PT.
[2021-07-04] MEDS: OXYBUTYNIN CHLORIDE ER 5 MG TAB PO SCH (20:28)
--- NOTE | 2021-07-04 21:30 | NUR ---
ICU/TEST DESIGNER PT SAID THAT HE HAD TO GO THE BATHROOM. PT IS EXTREMELY SHORT OF BREATH FROM THE COVID PNA, PLACED PT ON BED CID FOR HIS SAFETY . PT WASN'T HAPPY ABOUT THIS, DOESN'T WANT THE BED CID, PT CONTINUED TO AGRUE TO GET UP FROM BED, DESPITE THE SHORTNESS OF BREATH. PT'S SATURATION AFTER THE AGRUMENT IS 79-80%.
--- NOTE | 2021-07-04 22:45 | NUR ---
ICU/HEAD START COORDINATOR SON AND GRANDAUGHTER BOTH CALLED ASKED ABOUT THE STAUTS OF THIS PT. GAVE THEN BOTH UPDATES ON PT'S CONDITION. NOTIFED THE SON THAT PT IS TAKING A LONG TIME TO RETURN TO 85% SATURATION WHEN HE TAKES OFF MASK OR GETS ANGRY. PT IS IS NONCOMPLIANT WITH KEEPING ON HIS OXYGEN.
[2021-07-05] VITALS (24 sets, daily range): BP systolic 82–125; BP diastolic 48–88
--- NOTE | 2021-07-05 00:30 | NUR ---
ICU/ENDING MACHINE OPERATOR TRIED TO PULL PT UP IN BED AND REPOSITION PT TO HELP WITH BETTER BREATHING SO THAT PT COULD GET BETTER OXYGENATION HOWEVER PT SLIDE DOWN THE BED, REMOVED THE MASK. TRIED TO TELL THE PT THAT THE OXYGEN IS NECESSARY. PT IS TAKING A LONG TIME TO RETURN TO 85% SATURATION WHEN HE TAKES OFF MASK. WILL CONTINUE TO MONITOR THIS PT
--- NOTE | 2021-07-05 02:00 | NUR ---
ICU/INTERVENTIONAL NURSE PT WAS CLEANED UP AND REPOSITIONED AGAIN FOR BETTER SATURATION AND BREATHEING POSITION, HOWEVER PT STILL CONTINUES TO MOVE DOWN THE BED DESPITE REPEATED ATTEMPTS TO KEEP THIS PT IS A GOOD POSITION TO GET ADEQUATE OXYGENATION.
[2021-07-05] MEDS: CEFEPIME 2 GM in IV D5W 100 ML IV SCH (03:19)
--- NOTE | 2021-07-05 04:30 | NUR ---
ICU/HARDSCAPE FOREMAN MORNING LABS WERE DONE. CHARGE NURSE ASST WITH SLIGHT BATH AND REPOSITIONING. PT WAS AGAIN POSITIONED FOR BETTER SATURATION, PT CONTINUED TO MOVE DOWN THE BED DESPITE ATTEMPTS TO KEEP THIS PT IS A GOOD POSITION TO GET ADEQUATE OXYGENATION, GOAL RATE IS 85%.
[2021-07-05 04:51] LABS: BASOPHILS # (AUTO) 0.1 K/uL (0.0-0.2); BASOPHILS % (AUTO) 0.3 % (0.0-2.0); CALCIUM, SERUM 8.9 mg/dL (8.5-10.1); CARBON DIOXIDE 29 mmol/L (21-32); CHLORIDE 99 mmol/L (98-107); CREATININE 1.4 mg/dL (0.6-1.3); EOSINOPHILS % (AUTO) 0.4 % (0.0-6.0); GLUCOSE 99 mg/dL (74-106); HEMATOCRIT 44 % (39-51); HEMOGLOBIN 14.8 g/dL (13.5-17.5); LYMPHOCYTES # (AUTO) 1.2 K/uL (0.8-4.8); LYMPHOCYTES % (AUTO) 5.4 % (20.0-44.0); MEAN CORPUSCULAR HGB CONC 34 g/dl (31.0-36.0); MEAN CORPUSCULAR VOLUME 93 fL (80-96); MONOCYTES # (AUTO) 1.4 K/uL (0.1-1.30); MONOCYTES % (AUTO) 6.6 % (2.0-12.0); NEUTROPHILS # (AUTO) 18.8 K/uL (1.8-8.9); NEUTROPHILS % (AUTO) 87.3 % (43.0-81.0); PHOSPHORUS 4.5 mg/dL (2.5-4.9); PLATELET COUNT (AUTO) 331 K/uL (150-450); POTASSIUM 3.6 mmol/L (3.5-5.1); RED BLOOD CELL COUNT(AUTO) 4.72 MIL/uL (4.5-6.0); SODIUM SERUM 140 mmol/L (136-145); UREA NITROGEN, BLOOD 51 mg/dL (7-18); WHITE BLOOD COUNT (AUTO) 21.5 K/uL (4.3-11.0)
--- NOTE | 2021-07-05 05:40 | NUR ---
ICU/ROLL PRESS OPERATOR AM LABS WERE DONE.
[2021-07-05] MEDS: LEVOTHYROXINE SODIUM 50 MCG TABLET PO SCH (07:30)
--- NOTE | 2021-07-05 07:30 | NUR ---
NUT ROASTER HELPER OPENINIG NOTE PT SEMIFOWLER'S ON HIGH FLOW NC 40L, 100%, AND NRB 15L, SPO2 80-85%, LABORED BREATHING, ACCESSORY MUSCLE USE, DEPTH SHALLOW. PT A.Ox2 WITH PERIODS OF CONFUSION, DENIES PAIN. PT ABLE TO MAKE NEEDS KNOWN. PT JUNIE MIDLINE AND RFA #20 BOTH HL, FLUSHED AND INTACT, NO S/S OF INFILTRATION. PT ON BEDSIDE MONITOR ST IN LOW 100s. PT ZAYAS CATH INTACT DRAINING MINIMAL CLEAR LOR URINE TO GRAVITY. PT SACRAL REDNESS NOTED, SKIN OTHERWISE INTACT. ALL PT SAFETY PRECAUTIONS, WILL CONT TO MONITOR
[2021-07-05] MEDS: ENSURE ENLIVE 237 ML LIQUID (VANILLA) PO SCH ×3 (08:00→16:11)
[2021-07-05] MEDS: ASPIRIN 81 MG TAB.CHEW PO SCH (09:00)
[2021-07-05] MEDS: HYDROCHLOROTHIAZIDE 25 MG TABLET PO SCH (09:00)
[2021-07-05] MEDS: EZETIMIBE 10 MG TABLET PO SCH (09:00)
[2021-07-05] MEDS: ASCORBIC ACID 500 MG TABLET PO SCH ×2 (09:00→16:11)
[2021-07-05] MEDS: VALSARTAN 80 MG TABLET PO SCH (09:00)
[2021-07-05] MEDS: ZINC SULFATE 220 MG CAPSULE PO SCH (09:00)
[2021-07-05] MEDS: METOPROLOL SUCCINATE 25 MG TAB.SR.24H PO SCH (09:00)
[2021-07-05] MEDS: DOCUSATE SODIUM 100 MG CAPSULE PO SCH ×2 (09:00→16:11)
[2021-07-05] MEDS: TAMSULOSIN 0.4 MG CAP.SR.24H PO SCH (09:00)
[2021-07-05] MEDS: FAMOTIDINE (20 MG) 20 MG TABLET PO SCH ×2 (09:00→21:00)
[2021-07-05] MEDS: CHOLECALCIFEROL 1,000 UNIT TABLET (VIT D3) PO SCH (09:00)
[2021-07-05] MEDS: DUTASTERIDE (0.5 MG) 0.5 MG CAPSULE PO SCH (09:00)
[2021-07-05] MEDS: DONEPEZIL 5 MG TABLET PO SCH (09:00)
[2021-07-05] MEDS: MECLIZINE HCL 25 MG TABLET PO SCH (09:00)
[2021-07-05] MEDS: FUROSEMIDE 40 MG TABLET PO SCH (09:00)
--- NOTE | 2021-07-05 09:00 | NUR ---
RN NOTE PT UNABLE TO TAKE PO MEDS D/T EXTREMELY HIGH ASPIRATION RISK
--- NOTE | 2021-07-05 09:15 | NUR ---
RN NOTE PT REMOVED HIGH FLOW NC AND NRB, SPO2 65%, RR 6, AGONAL RESP NOTED, DIAPHORETIC, BOUNDING CAROTID PULSE, HR 102. IMMEDIATELY PLACED NC HIGH FLOW AND NRB, REINFORCED. STERNAL RUB PERFORMED AND PT RESP DRIVE RETURNED, DEPTH SHALLOW, ACCESSORY MUSCLE USE, RR TO HIGH 20s. PT UNAROUSABLE TO PAIN. PT SPO2 RETURNED TO LOW 80s%. DR ALARCON INFORMED. WILL CONT TO MONITOR
[2021-07-05] MEDS: DEXAMETHASONE SOD PHOSPHATE 10 MG/ML VIAL IV SCH (09:48)
[2021-07-05] MEDS: ENOXAPARIN SODIUM 40 MG/0.4 ML DISP.SYRIN SQ SCH ×2 (09:49→17:00)
--- NOTE | 2021-07-05 11:00 | NUR ---
RN NOTE PT MORE ALERT AND AROUSABLE, A/Ox1, NOT MAKING SENSE WHEN SPEAKING THOUGH. SPO2 LOW 80s% AND RESP DISTRESS NOTED. ALL SAFETY PRECAUTIONS IN PLACE. MONITORING PT CLOSELY
[2021-07-05 11:03] LABS: BILIRUBIN,DIRECT 0.4 mg/dL (0.0-0.2); BILIRUBIN,TOTAL 0.9 mg/dL (0.2-1.0)
--- NOTE | 2021-07-05 11:18 | NUR ---
SUZIE ALARCON INFORMED OF LACTIC 4.5. NO REDRAW ORDERED
[2021-07-05] MEDS: VANCOMYCIN 1.25 GM in IV D5W 250 ML IV SCH (11:22)
[2021-07-05] MEDS: diphenhydrAMINE HCL 50 MG/ML VIAL IV PRN ×2 (11:22→23:21)
[2021-07-05] MEDS ORDERED: IV D5/ 0.9% NACL 1,000 ML IV SCH (12:45)
[2021-07-05] MEDS ORDERED: DOSE PER PHARMACY VORIconazole/VFEND XX PRN (14:30)
--- NOTE | 2021-07-05 15:43 | NUR ---
RN NOTE PT'S 2 SONS AND CAME TO VISIT FROM WINDOW. ALL QUESTIONS WERE ANSWERED. COMMUNICATION VIA PT'S CELL PHONE WITH FAMILY MEMBERS. FAMILY WILL CALL TOMORROW REGARDING VISITIATION PROTOCOL
--- NOTE | 2021-07-05 16:12 | NUR ---
RN NOTE PT UNABLE TO TAKE PO MEDS, ASPIRATION RISK. DR ALARCON AWARE
[2021-07-05] MEDS ORDERED: MICAFUNGIN SODIUM 100 MG in IV NS 0.9% 100 ML IV SCH (17:00)
[2021-07-05] MEDS: MEROPENEM 1 G in IV NS 0.9% 100 ML IV SCH (17:37)
--- NOTE | 2021-07-05 19:00 | NUR ---
SUPERVISOR CUSTOMER RECORDS DIVISION NOTE RECEIVED PATIENT IN BED RESTING ALERT ORIENTEDX1 CLOSED EYES,ON HIGH FLOW OXYGEN 40L FIO2:100% AND 15L NON REBREATHER MASK O2:80-83%,LABORED BREATHING, IV SITE IS ON LEFT FOREARM AND RIGHT UPPER ARM MIDLINE,INTACT PATENT ON IV HYDRATION D5NS 40CC/HR ZAYAS CATHETER IM PLACE,URINE DRAINING YELLOW/CLEAR BY GRAVITY,HEAD OF THE BED ELEVATED,SAFETY MEASURE IMPLEMENT CONTINUE TO MONITOR.
--- NOTE | 2021-07-05 19:00 | NUR ---
SEPHORA OPERATIONS CONSULTANT CLOSING NOTE NO CHANGES TO PT STATUS. PT STILL WITH LABORED BREATHING ON HIGH FLOW NC 40/100%, NRB 15L, SPO2 80-85%. PT DESATS IMMEDIATELY UPON RENOVAL OF NRB. BOTH NC AND NRB REINFORCED. PT MORE ALERT NOW A/Ox1-2 WITH PERIODS OF CONFUSION, RESTRAINTS REMOVED AT 1700, NO ISSUES WITH KEEPING NRB ON. PT DENIES PAIN. PT RUNNING D5 NS @ 40 ML/HR IN LUCIA. FAMILY TO VISIT TOMORROW, ID TO BE CONSULTED REGARDING WHETHER FAMILY MAY ENTER PT ROOM OR NOT PCR POSITIVE RESULT WILL BE 14 DAYS TOMORROW. ALL PT SAFETY PRECAUTIONS IN PLACE
--- NOTE | 2021-07-05 20:00 | NUR ---
ICU NOTE PATIENT'S SON CALLED AND REQUESTED FOR MAKE PHONE CALL AND ARRANGE CONVERSENSION BETWEEN PATIENT AND GRAND DAUGHTER,DONE PATIENT TALKED WITH HIS GRAND DAUGHTER.
--- NOTE | 2021-07-05 20:14 | NUR ---
PT IS ON DOUBLE OXYGEN SET UP. HFNC + NRB. O2 SAT 80%-85%. CONTINUE TO MONITOR. Addendum: 07/05/21 at 2016 by MARY JANE PERRY RT Amended: Links added.
[2021-07-05] MEDS: OXYBUTYNIN CHLORIDE ER 5 MG TAB PO SCH (21:11)
--- NOTE | 2021-07-05 21:12 | NUR ---
RN NOTE PEPCID 20MG AT 2100 AND DITROPAN 5MG AT 2200 NOT GIVEN FOR ASPIRATION RISK CONTINUE TO MONITOR
[2021-07-06] VITALS (13 sets, daily range): BP systolic 0–136; BP diastolic 45–98
[2021-07-06] MEDS: MEROPENEM 1 G in IV NS 0.9% 100 ML IV SCH (05:03)
--- NOTE | 2021-07-06 06:40 | NUR ---
REED POLISHER NOTE PATIENT REMAINS ON ALERT ORIENTED X1 ON HIGH FLOW OXYGEN 40L FIO2:100% AND 15L NON REBREATHER MASK O2:80-82% LABORED BREATHING , PO MEDS NOT GIVEN DUE TO PATIENT ASPIRATION RISK,IV SITE IS ON LEFT UPPER ARM MIDLINE AND RIGHT FOREARM INTACT PATENT ON IV HYDRATION D5NS 40CC/HR,KEPT CLEAN AND DRY ALL THE TIME,REPOSITIONED EVERY 2HOURS ZAYAS CATHETER IN PLACE URINE DRAINING YELLOW AND CLEAR, ALL NEEDS MET HEAD OF THE BED ELEVATED,ENDORSE NEXT COMING SHIFT FOR CONTINUATION OF CARE.
[2021-07-06 07:06] LABS: IMMUNOGLOBULIN A, SERUM 148 mg/dL (61-437); IMMUNOGLOBULIN G, SERUM 1498 mg/dL (603-1613); IMMUNOGLOBULIN M, SERUM 98 mg/dL (15-143)
[2021-07-06] MEDS: LEVOTHYROXINE SODIUM 50 MCG TABLET PO SCH (07:30)
--- NOTE | 2021-07-06 07:35 | NUR ---
ICU/RN PT IS ON THE BED,HAS SOB ,LETHARGIC.ON HI FLOW O2-100% AND ON NRM AT 15L ,SAT O2-80-82%.AFEBRILE.NO PAIN REPORTED AT THIS TIME.IV INFUSING ORDERED.F/C DRAINING WITH MINIMAL AMOUNT OF URINE.BRUISES NOTED ALL OVER THE BODY.LABS ORDERED.PT IS DNR/DNI.
[2021-07-06] MEDS: ENSURE ENLIVE 237 ML LIQUID (VANILLA) PO SCH (08:00)
[2021-07-06] MEDS: MECLIZINE HCL 25 MG TABLET PO SCH (08:18)
[2021-07-06] MEDS: DONEPEZIL 5 MG TABLET PO SCH (08:19)
[2021-07-06] MEDS: DOCUSATE SODIUM 100 MG CAPSULE PO SCH (08:19)
[2021-07-06] MEDS: VALSARTAN 80 MG TABLET PO SCH (08:19)
[2021-07-06] MEDS: DUTASTERIDE (0.5 MG) 0.5 MG CAPSULE PO SCH (08:19)
[2021-07-06] MEDS: ASPIRIN 81 MG TAB.CHEW PO SCH (08:19)
[2021-07-06] MEDS: METOPROLOL SUCCINATE 25 MG TAB.SR.24H PO SCH (08:20)
[2021-07-06] MEDS: ASCORBIC ACID 500 MG TABLET PO SCH (08:20)
[2021-07-06] MEDS: FAMOTIDINE (20 MG) 20 MG TABLET PO SCH (08:20)
[2021-07-06] MEDS: TAMSULOSIN 0.4 MG CAP.SR.24H PO SCH (08:20)
[2021-07-06] MEDS: DEXAMETHASONE SOD PHOSPHATE 10 MG/ML VIAL IV SCH (08:21)
[2021-07-06] MEDS: EZETIMIBE 10 MG TABLET PO SCH (08:21)
[2021-07-06] MEDS: CHOLECALCIFEROL 1,000 UNIT TABLET (VIT D3) PO SCH (08:21)
[2021-07-06] MEDS: ZINC SULFATE 220 MG CAPSULE PO SCH (08:21)
[2021-07-06] MEDS: ENOXAPARIN SODIUM 40 MG/0.4 ML DISP.SYRIN SQ SCH (08:56)
--- NOTE | 2021-07-06 09:00 | NUR ---
ICU/RN DUE MEDS ARE GIVEN ORDERED.ALL PO MEDS NON ADMINISTERED.PT IS LETHARGIC,HAS SOB ,UNABLE TO SWALLOW.MD NOTIFIED.DR ALARCON SEEN THE PT .CONTINUE MONITORING.
[2021-07-06 09:21] LABS: BASOPHILS # (AUTO) 0.3 K/uL (0.0-0.2); BASOPHILS % (AUTO) 1.2 % (0.0-2.0); EOSINOPHILS % (AUTO) 0.1 % (0.0-6.0); HEMATOCRIT 48 % (39-51); HEMOGLOBIN 15.9 g/dL (13.5-17.5); LYMPHOCYTES # (AUTO) 1.2 K/uL (0.8-4.8); LYMPHOCYTES % (AUTO) 4.7 % (20.0-44.0); MEAN CORPUSCULAR HGB CONC 33 g/dl (31.0-36.0); MEAN CORPUSCULAR VOLUME 95 fL (80-96); MONOCYTES # (AUTO) 1.3 K/uL (0.1-1.30); MONOCYTES % (AUTO) 4.9 % (2.0-12.0); NEUTROPHILS # (AUTO) 23.3 K/uL (1.8-8.9); NEUTROPHILS % (AUTO) 89.1 % (43.0-81.0); PLATELET COUNT (AUTO) 323 K/uL (150-450); WHITE BLOOD COUNT (AUTO) 26.1 K/uL (4.3-11.0)
[2021-07-06 09:47] LABS: CALCIUM, SERUM 8.7 mg/dL (8.5-10.1); CARBON DIOXIDE 25 mmol/L (21-32); CHLORIDE 104 mmol/L (98-107); CREATININE 1.4 mg/dL (0.6-1.3); GLUCOSE 135 mg/dL (74-106); PHOSPHORUS 3.8 mg/dL (2.5-4.9); POTASSIUM 3.9 mmol/L (3.5-5.1); SODIUM SERUM 142 mmol/L (136-145); UREA NITROGEN, BLOOD 60 mg/dL (7-18)
--- NOTE | 2021-07-06 10:15 | NUR ---
ICU/RN RAPID COVID TEST DONE ORDERED AND REQUESTED BY FAMILY,OK TO VISIT IF TEST NEGATIVE.
--- NOTE | 2021-07-06 11:10 | NUR ---
ICU/RN PT HAS AGONAL BREADING .HR DECREASED,UNABLE TO READ BLOOD PRESSURE.HAS PACEMAKER HR-60.ALOC.
--- NOTE | 2021-07-06 11:25 | NUR ---
ICU/RN NO CHEST MOVEMENTS,ASYSTOLE ON MONITOR,NO RESPIRATIONS,PUPILS ARE FIX AND DILATED.PRONOUNCED BY [place]/RN/CHARGE NURSE.FAMILY NOTIFIED.SUPERVISORS SCOTT NOTIFIED.ADMITTING NOTIFIED.DR ALARCON NOTIFIED.
--- NOTE | 2021-07-06 11:25 | NUR ---
STARTING SHEET TANK OPERATOR PT DNR/DNI STATUS. FOUND PT APNEIC, NO PALPABLE PULSES, PUPILS FIXED AND DILATED. PRONOUNCED AT 1125.
--- NOTE | 2021-07-06 11:40 | NUR ---
ICU/RN POST MORTEM CARE DONE.FAMILY AT BEDSIDE. ALL BELONGING GIVEN TO SON ZAY.MORTUARY INFO TAKEN [phone] -[place]OHN. [employer] NOTIFIED. CASE # [id number].-[place]. MORTUARY NOTIFIED,THEY WILL PIC UP BODY IN A FEW HRS.BODY WILL GO TO [facility] AT THIS TIME
--- NOTE | 2021-07-06 11:40 | NUR ---
RT PATIENT , HIGH FLOW REMOVED FROM ROOM
[2021-07-06 14:00] LABS: BAND % (MANUAL) 3 % (0.0-5.0); LYMPHOCYTES % (MANUAL) 3 % (16-48); MONOCYTES % (MANUAL) 2 % (0-11.0); MYELOCYTES % 1 % (0-0); NEUTROPHILS % (MANUAL) 91 (42-76)
== END 2021-07-06 11:25 | DRG 871 ==
LOC: ER 07:18 → TRANSITION 12:21 → TELE1 14:14 → ICU 07-03 20:23
PROVIDERS: ADMIT Internal Medicine; ATTEND Internal Medicine
PROC: XW033H5 Introduction of Tocilizumab into Peripheral Vein, Percutaneous Approach, New Technology Group 5 (ICD-10-PCS; 2021-06-22)
PROC: XW033E5 Introduction of Remdesivir Anti-infective into Peripheral Vein, Percutaneous Approach, New Technology Group 5 (ICD-10-PCS; principal; 2021-06-23)
PROC: 05HC33Z Insertion of Infusion Device into Left Basilic Vein, Percutaneous Approach (ICD-10-PCS; 2021-06-30)
PROC: 02HV33Z Insertion of Infusion Device into Superior Vena Cava, Percutaneous Approach (ICD-10-PCS; 2021-07-06)
PROC: B548ZZA Ultrasonography of Superior Vena Cava, Guidance (ICD-10-PCS; 2021-07-06)
DX: A41.89 Other specified sepsis (principal); U07.1 COVID-19; N17.0 Acute kidney failure with tubular necrosis; J12.82 Pneumonia due to coronavirus disease 2019; J96.01 Acute respiratory failure with hypoxia; J15.9 Unspecified bacterial pneumonia; I13.0 Hypertensive heart and chronic kidney disease with heart failure and stage 1 through stage 4 chronic kidney disease, or unspecified chronic kidney disease; E44.1 Mild protein-calorie malnutrition; Z66 Do not resuscitate; Z51.5 Encounter for palliative care; E03.9 Hypothyroidism, unspecified; N40.0 Benign prostatic hyperplasia without lower urinary tract symptoms; I50.9 Heart failure, unspecified; N18.9 Chronic kidney disease, unspecified; I25.10 Atherosclerotic heart disease of native coronary artery without angina pectoris; E66.9 Obesity, unspecified; E78.5 Hyperlipidemia, unspecified; F03.90 Unspecified dementia, unspecified severity, without behavioral disturbance, psychotic disturbance, mood disturbance, and anxiety; T38.0X5A Adverse effect of glucocorticoids and synthetic analogues, initial encounter; Y92.9 Unspecified place or not applicable; Z68.31 Body mass index [BMI] 31.0-31.9, adult; E88.09 Other disorders of plasma-protein metabolism, not elsewhere classified; I70.0 Atherosclerosis of aorta; E87.6 Hypokalemia; D69.6 Thrombocytopenia, unspecified; Z87.891 Personal history of nicotine dependence; Z95.0 Presence of cardiac pacemaker; R74.01 Elevation of levels of liver transaminase levels
CPT/HCPCS: 36410; 36415; 36569; 36600; 71045-TC; 71046; 80048-TC; 80053-TC; 80076-TC; 80202-TC; 81001; 82247-TC; 82248-TC; 82728-TC; 82784; 82803-TC; 83605-TC; 83615-TC; 83735-TC; 84100-TC; 84484-TC; 85025-TC; 85378-TC; 85610-TC; 85730-TC; 86140-TC; 86334; 86480; 86803; 87040-TC; 87070-TC; 87081-TC; 87086-TC; 87102-TC; 87186-TC; 87806; 87899; 94640-TC; 94760-TC; 94762-TC; 94799-TC; 99082-TC; A4216; A4217; A7526; C9803; G0378; J0456; J0692; J0696; J1100; J1200; J1650; J2185; J2248; J3262; J3370; J7030; J7042; J7050; J7060; J8597; U0003